=== PATIENT | female | born 1940 | race Caucasian/White ===

== ENCOUNTER 2018-03-12 10:50 | Inpatient (IN) ==
[2018-03-12 12:55] LABS: Baso % (Auto) 0.5 % (0.0-2.0); Eos % (Auto) 0.3 % (0.0-4.0); Hematocrit 39.9 % (35.0-46.0); Hemoglobin 13.6 gm/dL (11.6-15.3); Lymph # (Auto) 0.4 th/mm3 (1.0-4.8); Lymph % (Auto) 4.4 % (9.0-44.0); Mean Corpuscular Volume 88.3 fL (80.0-100.0); Mean Platelet Volume 6.9 fL (7.0-11.0); Mono # (Auto) 0.9 th/mm3 (0.0-0.9); Mono % (Auto) 11.1 % (0.0-8.0); Neut # (Auto) 6.8 th/mm3 (1.8-7.7); Neut % (Auto) 83.7 % (16.0-70.0); Platelet Count 286 th/mm3 (150-450); Red Blood Count 4.52 mil/mm3 (4.00-5.30); Red Cell Distribution Width 13.2 % (11.6-17.2); White Blood Count 8.2 th/mm3 (4.0-11.0)
[2018-03-12 13:15] LABS: Alanine Aminotransferase 9 U/L (10-53); Albumin 3.6 g/dL (3.4-5.0); Anion Gap 8 meq/L (5-15); Aspartate Aminotransferase 21 U/L (15-37); Blood Urea Nitrogen 20 mg/dL (7-18); Calcium 8.6 mg/dL (8.5-10.1); Carbon Dioxide 31.5 meq/L (21.0-32.0); Chloride 97 meq/L (98-107); Glomerular Filtration Rate Greater Than 89 mL/min (>89); Glucose,Random 106 mg/dL (74-106); Lipase 122 U/L (73-393); Potassium 3.6 meq/L (3.5-5.1); Sodium 136 meq/L (136-145)
[2018-03-12 13:18] LABS: Alkaline Phosphatase 102 U/L (45-117); Total Protein 6.9 g/dL (6.4-8.2)
[2018-03-12 13:28] LABS: Bilirubin,Urine Negative (Negative); Clarity,Urine Clear (Clear); Color,Urine Yellow (Yellw/Straw); Glucose,Urine (UA) Negative (Negative); Leukocyte Esterase,Urine Negative (Negative); Mucus,Urine Few /lpf (Occasional); Nitrite,Urine Negative (Negative); Squamous Epithelial Cell,Urine 1 /hpf (0-5)
--- NOTE | 2018-03-12 13:56 | XR ---
EXAM DATE: 03/12/2018 12:31 PM EDT AGE/SEX: 77 years / Female INDICATIONS: Post fall two weeks ago. CLINICAL DATA: This is the patient's initial encounter. Patient reports that signs and symptoms have been present for 2 weeks and indicates a pain score of 5/10. MEDICAL/SURGICAL HISTORY: None. None. COMPARISON: No prior exams available for comparison. FINDINGS: The femoral head is well situated within the acetabular fossa. The alignment is anatomic. No acute fr acture of the hip is identified. The oblique images do demonstrate an area of increased density in the subcutaneous tissues measuring approximately 10.0 x 4.1 cm. It is possible this represents hematoma however I cannot exclude an unde rlying soft tissue mass. Ultrasound imaging for further assessment would be warranted. CONCLUSION: No acute bony abnormality is identified. Soft tissue abnormality in the subcutaneous tissues of the right groin. Please see above. Electronically signed by: Delroy Davis MD 03/12/2018 1:55 PM EDT
--- NOTE | 2018-03-12 14:13 | CT ---
EXAM DATE: 03/12/2018 1:25 PM EDT AGE/SEX: 77 years / Female INDICATIONS: Patient complains of bilateral flank pain for 2 weeks CLINICAL DATA: This is the patient's initial encounter. Patient reports that signs and symptoms have been present for 2 weeks and indicates a pain score of 10/10. MEDICAL/SURGICAL HISTORY: Carcinoma, breast. None. ORAL CONTRAST: No oral contrast ingested. RADIATION DOSE: 4.91 CTDI (mGy) COMPARISON: POI, CT ABDOMEN AND PELVIS W/ CONTRAST, 11/13/2016. . TECHNIQUE: Multiple contiguous axial images were obtained through the abdomen and pelvis following b olus infusion of 75 ml Omnipaque 350 (iohexol) nonionic water-soluble contrast as a single exam dos e. No oral contrast ingested. Using automated exposure control and adjustment of the mA and/or kV ac cording to patient size, radiation dose was kept as low as reasonably achievable to obtain optimal di agnostic quality images. DICOM format image data is available electronically for review and comparis on. FINDINGS: Imaging through the lung bases demonstrate a small to moderate-sized right pneumothorax. The appearance of the liver, spleen, pancreas and adrenal glands is within normal limits. The kidneys are unremarkable in appearance bilaterally. The abdominal aorta is normal in caliber. There is no retroperitoneal adenopathy. No free air free fl uid is seen within the abdomen. There is no free fluid within the pelvis. No iliac or inguinal adenopathy is present. The examination does demonstrate a 4.1 x 3.5 cm well-circumscribed cystic mass involving the right adnexa. The visualized bony structures demonstrate a severe compression fracture of L1. There is vertebral pl saad with moderate bony retropulsion. The remainder the visualized osseous structures are grossly inta ct. CONCLUSION: 1. Small to moderate-sized pneumothorax on the right. 2. 4.1 x 3.5 cm well-circumscribed cystic mass in the right adnexa. 3. Severe compression fracture of L1. Compression fracture at L1 is new since previous of 11/13/2016. Electronically signed by: Delroy Davis MD 03/12/2018 2:11 PM EDT
--- NOTE | 2018-03-12 14:15 | XR ---
EXAM DATE: 03/12/2018 12:33 PM EDT AGE/SEX: 77 years / Female INDICATIONS: Post fall two weeks ago. Bilateral rib pain. CLINICAL DATA: This is the patient's initial encounter. Patient reports that signs and symptoms have been present for 2 weeks and indicates a pain score of 7/10. MEDICAL/SURGICAL HISTORY: None. None. COMPARISON: No prior exams available for comparison. FINDINGS: The examination demonstrates a small to moderate-sized pneumothorax on the right. There are fractures involving the right fourth, fifth and sixth ribs. The remainder the visualized bony structures are g rossly intact. There are granulomatous calcifications in the lung bases bilaterally. CONCLUSION: 1. The examination demonstrates a moderate-sized pneumothorax on the right with fractures involving the right fourth, fifth and sixth ribs. 2. Incidental note made of small areas of granulomatous calcification in the lung bases bilaterally. Electronically signed by: Delroy Davis MD 03/12/2018 2:14 PM EDT
[2018-03-12] MEDS ORDERED: Acetaminophen 325 MG Tablet PO PRN (16:53)
--- NOTE | 2018-03-12 17:06 | ED ---
HPI General Chief complaint: Abdominal Pain Stated complaint: Medical Time Seen by Provider: 03/12/18 11:04 History of Present Illness HPI narrative: Patient is a 77-year-old female presents emergency department for evaluation of lower abdominal and suprapubic pain, bilateral flank pain, low back pain after a fall 10 days ago. Patient has a history of Parkinson's disease and frequent falls. No blood in the urine, no head injury no neck injury, not on any blood thinners. States symptoms been gradually worsening, location as above, context above, duration as above. Related Data Home Medications Medication Instructions Recorded Confirmed calcium phosphate-vitamin D3 1,260 mg PO DAILY 03/12/18 03/12/18 [Citracal + D3 (calcium phos)] oxybutynin chloride 5 mg PO BID 03/12/18 03/12/18 trazodone 50 mg PO DAILY 03/12/18 03/12/18 Allergies Allergy/AdvReac Type Severity Reaction Status Date / Time latex Allergy Severe RASH Verified 03/12/18 11:12 doxycycline AdvReac Severe "TURNS ME Verified 03/12/18 11:12 PURPLE" minocycline AdvReac Severe "TURNS ME Verified 03/12/18 11:12 PURPLE" tigecycline AdvReac Severe "TURNS ME Verified 03/12/18 11:12 PURPLE" Review of Systems ROS: all other systems reviewed are negative PMFSH Medical History Medical History Breast cancer (Acute) Osteoporosis (Acute) Parkinson disease (Acute) Social History Social History Substance History: No History of Abuse Second Hand Smoke Exposure: No Smoking Status: Never smoker How Often Do You Have a Drink Containing Alcohol: Monthly or less Recent Travel in [facility] within the Last 8 Weeks: No Recent Out of Country Travel within the Last 8 Weeks: No Immunization History Tetanus Immunization: <5 Years Hx Influenza Vaccine This Season: No Exam Narrative Exam Narrative: GENERAL: Well-developed well-nourished no obvious distress. SKIN: Focused skin assessment warm/dry. HEAD: Atraumatic. Normocephalic. EYES: Pupils equal and round. No scleral icterus. No injection or drainage. ENT: No nasal bleeding or discharge. Mucous membranes pink and moist. NECK: Trachea midline. No JVD. CARDIOVASCULAR: Regular rate and rhythm. No murmur appreciated. RESPIRATORY: No accessory muscle use. Clear to auscultation. Breath sounds equal bilaterally. GASTROINTESTINAL: Abdomen soft, non-tender, nondistended. Hepatic and splenic margins not palpable. MUSCULOSKELETAL: No obvious deformities. No clubbing. No cyanosis. No edema. NEUROLOGICAL: Awake and alert. No obvious cranial nerve deficits. Motor grossly within normal limits. Normal speech. PSYCHIATRIC: Appropriate mood and affect; insight and judgment normal. Course Initial Documented Vital Signs Temperature 98.0 F 03/12/18 10:58 Pulse Rate 106 H 03/12/18 10:58 Respiratory Rate 18 03/12/18 10:58 Blood Pressure 159/80 H 03/12/18 10:58 Pulse Oximetry 97 03/12/18 10:58 Last Documented Vital Signs Temperature 98.0 F 03/12/18 10:58 Pulse Rate 106 H 03/12/18 10:58 Respiratory Rate 18 03/12/18 10:58 Blood Pressure 159/80 H 03/12/18 10:58 Pulse Oximetry 97 03/12/18 10:58 Medical Decision Making MDM Narrative Medical decision making narrative: Patient 77-year-old female presents to the emergency department 10 days after a fall from standing. She complained of low abdominal pain and some flank pain she actually has a pretty reassuring physical exam. Imaging had obtained and showed a severe compression fracture of L1 with retropulsion of elements into the spinal canal. The patient is neurologically intact. Also had isolated rib fracture on the right side, pneumothorax as well. Patient initially consulted Dr. Leonard, given that the symptoms have been present for 10 days he would like the patient to be offered to medical admission first. Discussed with the patient's primary care provider Dr. Nick who would like to admit the patient. Dr. Leonard was seen in consult. Patient also discussed with Dr. Sanchez, he is reviewed the images and would like to take the patient to the operating room. Patient was discussed with Dr. Sanchez about the pneumothorax and we agree if planning taken the operating room may need chest tube for positive pressure ventilations. Medical Screen Exam Complete: Yes Emergency Medical Condition: Yes Lab Data Result diagrams: 03/12/18 12:14 03/12/18 12:14 Lab Results 03/12/18 03/12/18 03/12/18 Range/Units 12:14 12:14 13:01 WBC 8.2 (4.0-11.0) th/mm3 RBC 4.52 (4.00-5.30) mil/mm3 Hgb 13.6 (11.6-15.3) gm/dL Hct 39.9 (35.0-46.0) % MCV 88.3 (80.0-100.0) fL MCH 30.0 (27.0-34.0) pg MCHC 34.0 (32.0-36.0) % RDW 13.2 (11.6-17.2) % Plt Count 286 (150-450) th/mm3 MPV 6.9 L (7.0-11.0) fL Neut % (Auto) 83.7 H (16.0-70.0) % Lymph % (Auto) 4.4 L (9.0-44.0) % [place] % (Auto) 11.1 H (0.0-8.0) % Eos % (Auto) 0.3 (0.0-4.0) % Baso % (Auto) 0.5 (0.0-2.0) % Neut # (Auto) 6.8 (1.8-7.7) th/mm3 Lymph # (Auto) 0.4 L (1.0-4.8) th/mm3 [place] # (Auto) 0.9 (0.0-0.9) th/mm3 Eos # (Auto) 0.0 (0.0-0.4) th/mm3 Baso # (Auto) 0.0 (0.0-0.2) th/mm3 WBC Differential . Differential Comment Auto diff final Sodium 136 (136-145) meq/L Potassium 3.6 (3.5-5.1) meq/L Chloride 97 L (98-107) meq/L Carbon Dioxide 31.5 (21.0-32.0) meq/L Anion Gap 8 (5-15) meq/L BUN 20 H (7-18) mg/dL Creatinine 0.51 (0.50-1.00) mg/dL Estimated GFR Greater than 89 (>89) mL/min Random Glucose 106 (74-106) mg/dL Calcium 8.6 (8.5-10.1) mg/dL Total Bilirubin 0.9 (0.2-1.0) mg/dL AST 21 (15-37) U/L ALT 9 L (10-53) U/L Alkaline Phosphatase 102 (45-117) U/L Total Protein 6.9 (6.4-8.2) g/dL Albumin 3.6 (3.4-5.0) g/dL Lipase 122 (73-393) U/L Urine Color Yellow (Yellw/Straw) Urine Clarity Clear (Clear) Urine pH 6.0 (5.0-8.5) Ur Specific [place] 1.020 (1.002-1.035) Urine Protein Negative (Neg-Trace) mg/dL Urine Glucose (UA) Negative (Negative) mg/dL Urine Ketones 20 (Negative) mg/dL Urine Occult Blood Small H (Negative) Urine Nitrate Negative (Negative) Urine Bilirubin Negative (Negative) Urine Urobilinogen Less than 2 (Less than 2) mg/dL Ur Leukocyte Esterase Negative (Negative) Urine RBC 1 (0-3) /hpf Urine WBC 1 (0-5) /hpf Ur Squamous Epith Cells 1 (0-5) /hpf Urine Mucus Few H (Occasional) /lpf Micro UA Comment Culture not ind Ur Microscopic Review Not Reportable Urine Culture Comments Culture not ind Imaging Data Radiologist's impression: Abdomen/Pelvis CT 03/12/18 12:31 CONCLUSION: 1. Small to moderate-sized pneumothorax on the right. 2. 4.1 x 3.5 cm well-circumscribed cystic mass in the right adnexa. 3. Severe compression fracture of L1. Compression fracture at L1 is new since previous of 11/13/2016. Hip X-Ray 03/12/18 12:31 CONCLUSION: No acute bony abnormality is identified. Soft tissue abnormality in the subcutaneous tissues of the right groin. Please see above. Ribs X-Ray 03/12/18 12:33 CONCLUSION: 1. The examination demonstrates a moderate-sized pneumothorax on the right with fractures involving the right fourth, fifth and sixth ribs. 2. Incidental note made of small areas of granulomatous calcification in the lung bases bilaterally. Discharge Plan Discharge Disposition Patient Disposition: 30 Still Patient Discharge Condition Condition: Stable Discharge Details Diagnosis: Fracture of lumbar spine, Pneumothorax Physicians Team ED Provider: Randall Daives Primary Care Provider: Rj Nick Attending Provider: Rj Nick Other Providers: Missy Leonard ; Rajesh Sanchez Discharge Interventions Interventions: Vital Signs Last Done: 03/12/18 10:58 Status ED Status: Admitted Patient
--- NOTE | 2018-03-12 17:53 | MR ---
EXAM DATE: 03/12/2018 5:16 PM EDT AGE/SEX: 77 years / Female INDICATIONS: Fracture. CLINICAL DATA: This is the patient's initial encounter. Patient reports that signs and symptoms have been present for 4 - 6 days and indicates a pain score of 10/10. MEDICAL/SURGICAL HISTORY: Carcinoma, breast. Appendectomy. Tonsillectomy. COMPARISON: No prior exams available for comparison. TECHNIQUE: Multiplanar, multisequence MRI of the lumbar spine was performed without contrast. Patie nt was scanned in a sitting position; neutral, flexion, and extension scans were performed in the sa gittal plane. FINDINGS: There is a severe compression fracture of L1 with retropulsion compromising the spinal canal and resu lting in a focal moderate central canal and moderate to severe lateral recess stenosis. Mild bilatera l foraminal encroachment. At L1-2 there is no significant stenosis of the disc interspace. At L2-3 there is a mild disc bulge or protrusion with mild lateral recess stenosis. At L3-4 there is a broad-based posterior disc protrusion and facet arthropathy with a moderate centra l canal lateral recess stenosis and mild right foraminal stenosis. At L4-5 there is a grade 1 anterolisthesis and broad-based disc protrusion with facet arthropathy res ulting in a focal moderate to severe canal and lateral recess stenosis and mild bilateral foraminal s tenosis. At L5-S1 there is a disc bulge and facet arthropathy without significant canal or foraminal stenosis. CONCLUSION: 1. At L1 there is a severe compression fracture with retropulsion resulting in a focal moderate to s evere canal and lateral recess stenosis. 2. At L3-4 there is a moderate central canal and lateral recess stenosis from disc protrusion and fa cet arthropathy. 3. At L4-5 there is a severe focal severe canal stenosis from grade 1 anterolisthesis listhesis, dis c protrusion and facet arthropathy. Electronically signed by: Hilton Bergeron MD 03/12/2018 5:52 PM EDT
--- NOTE | 2018-03-12 17:57 | CT ---
EXAM DATE: 03/12/2018 12:00 AM EDT AGE/SEX: 77 years / Female INDICATIONS: Fall eight days ago. Lumbar fracture. CLINICAL DATA: This is the patient's initial encounter. Patient reports that signs and symptoms have been present for 1 day and indicates a pain score of 7/10. MEDICAL/SURGICAL HISTORY: Carcinoma, breast. Parkinson's disease. None. RADIATION DOSE: . CTDI (mGy) ; Reconstructed from previous dataset, no dose COMPARISON: No prior exams available for comparison. TECHNIQUE: Contiguous axial images were acquired with a multirow detector CT scanner after intraveno us administration of 100 ml Omnipaque 350 (iohexol) nonionic water-soluble contrast as a cumulative dose for multiple exams. Multiplanar reconstructions in the sagittal and coronal plane were also per formed. Using automated exposure control and adjustment of the mA and/or kV according to patient size , radiation dose was kept as low as reasonably achievable to obtain optimal diagnostic quality images . DICOM format image data is available electronically for review and comparison. FINDINGS: At L1 there is a severe compression fracture with retropulsion and moderate to severe central canal l ateral recess stenosis. At L2-3 there is a disc bulge and facet arthropathy with mild lateral recess stenosis. At L3-4 there is a broad-based disc protrusion with moderate central canal and lateral recess stenosi s. Minimal anterolisthesis at this level. At L4-5 there is a severe central canal lateral recess stenosis from grade 1 anterolisthesis, disc pr otrusion and facet arthropathy. At L5-S1 there is a mild disc bulge without significant canal stenosis. Mild bilateral foraminal encr oachment. CONCLUSION: At L1 there is a severe compression fracture with retropulsion and moderate to severe central canal l ateral recess stenosis. At L4-5 there is a severe central canal stenosis from grade 1 anterolisthesis, disc protrusion and fa cet arthropathy. At L3-4 there is a moderate central canal lateral recess stenosis from disc protrusion, minimal anter olisthesis and facet arthropathy. Electronically signed by: Hilton Bergeron MD 03/12/2018 5:56 PM EDT
--- NOTE | 2018-03-12 18:42 | P.CONNS ---
<Brenda Stewart - Last Filed: 03/12/18 20:56> History of Present Illness Primary Care Provider: Rj Nick MD History of Present Illness: Ms. Alcantar is a 77 year old female presents today with complaints of back pain. She reportedly had several ground level falls approximately 10 days ago. She has a history of Parkinson's Disease. She is complaining of pain in her upper lumbar region midline. She denies radiating pain, numbness, tingling, weakness , bowel or bladder incontinence. She has been ambulating. She was found to have a severe fracture of L1 with retropulsion into the spinal canal on her CT Abdomen/Pelvis. Neurosurgical evaluation was requested. Review of Systems Constitutional: Denies body ache(s), Denies chills, Denies excessive sweating, Denies fever(s) Eyes: Denies change in vision Ears, Nose, Mouth, and Throat: Denies dizziness Cardiovascular: Denies chest pain, Denies chest pain at rest, Denies chest pain with activity Respiratory: Denies chest congestion, Denies cough, Denies coughing up blood, Denies shortness of breath Gastrointestinal: Denies abdominal pain, Denies bright, red blood in stools, Denies incontinent of stools Genitourinary: Denies urinary incontinence Musculoskeletal: Reports abnormal walking, Reports back pain, Denies neck pain, Denies numbness, Denies radiating pain into limb Neurologic: Reports frequent falls, Denies abnormal speech, Denies confusion, Denies dizziness, Denies fainting, Denies headache(s), Denies localized weakness , Denies seizure-like activity, Denies tingling/numbness/burning sensations, Denies weakness PMF - Medical History Medical History: Medical History (Last Updated 03/12/18 @ 11:14 by Renate Llamas) Breast cancer Osteoporosis Parkinson disease Medications and Allergies Allergies Allergy/AdvReac Type Severity Reaction Status Date / Time latex Allergy Severe RASH Verified 03/12/18 11:12 doxycycline AdvReac Severe "TURNS ME Verified 03/12/18 11:12 PURPLE" minocycline AdvReac Severe "TURNS ME Verified 03/12/18 11:12 PURPLE" tigecycline AdvReac Severe "TURNS ME Verified 03/12/18 11:12 PURPLE" Home Medications Medication Instructions Recorded Confirmed Type calcium phosphate-vitamin D3 1,260 mg PO DAILY 03/12/18 03/12/18 History [Citracal + D3 (calcium phos)] carbidopa-levodopa 2 tab PO AC BREAKFAST 03/12/18 03/12/18 History oxybutynin chloride 5 mg PO BID 03/12/18 03/12/18 History trazodone 50 mg PO HS 03/12/18 03/12/18 History Active Medications: Active Medications Acetaminophen (Tylenol) 650 mg PO Q4H PRN PRN Reason: Temp > 100.4 Al Hydroxide/Mg Hydroxide (Milk Of Jaja Hui) 30 ml PO Q12H PRN PRN Reason: Mild Constipation Calcium/Vitamin D (Oscal With D 250/125 Mg) 2 tab PO DAILY [facility] Chlorhexidine Gluconate (Chlorhexidine 2% Cloth) 3 pack TOPICAL DAILY@0400 [facility] Stop: 03/18/18 03:59 Chlorhexidine Gluconate (Chlorhexidine 2% Cloth) 3 pack TOPICAL DAILY@0400 PRN PRN Reason: Extra cloth needed Stop: 03/18/18 03:59 Heparin Sodium (Porcine) (Heparin Inj) 5,000 units SQ Q12H [facility] Lactated Ringer's (Lr 1000 Ml Inj) 1,000 mls @ 100 mls/hr IV.CONT .Q10H [facility] Acetaminophen (Ofirmev Inj) 1,000 mg in 100 mls @ 400 mls/hr IV.SIG Q6H PRN PRN Reason: PAIN SCALE 1 TO 10 Morphine Sulfate (Morphine Inj) 2 mg IV.PUSH Q3H PRN PRN Reason: BREAKTHROUGH PAIN Ondansetron HCl (Zofran Inj) 4 mg IV.PUSH Q6H PRN PRN Reason: NAUSEA OR VOMITING Oxybutynin Chloride (Ditropan) 5 mg PO BID [facility] Senna/Docusate Sodium (Steffi-Colace) 1 tab PO BID [facility] Sodium Chloride (Ns Flush) 2 ml IV.FLUSH PRN PRN PRN Reason: FLUSH AFTER USING IV ACCESS Sodium Chloride (Ns Flush) 2 ml IV.FLUSH UNSCH PRN PRN Reason: FLUSH AFTER USING IV ACCESS Trazodone HCl (Desyrel) 50 mg PO [facility] Exam Vital signs: Vital Signs 03/12/18 10:58 03/12/18 17:10 03/12/18 20:00 Temperature 98.0 F 98.1 F Pulse Rate 106 H 76 93 H Respiratory Rate 18 22 16 Blood Pressure 159/80 H 169/74 H 145/66 H Pulse Oximetry 97 98 99 Intake & Output 03/12/18 03/12/18 03/13/18 06:59 18:59 06:59 Weight 54.431 kg Results - Laboratory Findings CBC and BMP: 03/12/18 12:14 03/12/18 12:14 Abnormal lab findings: Abnormal Labs 03/12/18 03/12/18 03/12/18 12:14 12:14 13:01 MPV 6.9 L Neut % (Auto) 83.7 H Lymph % (Auto) 4.4 L [place] % (Auto) 11.1 H Lymph # (Auto) 0.4 L Chloride 97 L BUN 20 H ALT 9 L Urine Occult Blood Small H Urine Mucus Few H <DanielRajesh - Last Filed: 03/13/18 14:19> History of Present Illness Service: neurosurgery Primary Care Provider: Rj Nick MD Chief Complaint: back pain Review of Systems Constitutional: Denies anorexia, Denies body ache(s), Denies chills, Denies daytime sleepiness, Denies excessive sweating, Denies fatigue, Denies fever(s), Denies headache(s), Denies increased appetite, Denies lack of energy, Denies malaise, Denies night sweats, Denies weakness, Denies weight gain, Denies weight loss, Denies other Eyes: Denies blind spots, Denies blurry vision, Denies bulging eyes, Denies change in vision, Denies double vision, Denies discharge, Denies dry eyes, Denies floaters, Denies irritation, Denies itchy eyes, Denies loss of vision, Denies pain, Denies requires corrective lenses, Denies sensitivity to light, Denies other Ears, Nose, Mouth, and Throat: Reports abnormal hearing, Denies bleeding gums, Denies bad breath, Denies change in voice, Denies dental pain, Denies difficulty swallowing, Denies dizziness, Denies dry mouth, Denies ear discharge , Denies ear pain, Denies facial pain, Denies headache(s), Denies hearing loss, Denies hoarseness, Denies lip swelling, Denies nosebleed, Denies mouth lesions, Denies mouth pain, Denies nasal congestion, Denies nasal discharge, Denies nasal obstruction, Denies nasal trauma, Denies neck lump, Denies neck pain, Denies nose pain, Denies pain with swallowing, Denies poor balance, Denies post nasal drip, Denies ringing in the ears, Denies sinus pain, Denies sinus pressure , Denies sore throat, Denies throat swelling, Denies tongue swelling, Denies other Cardiovascular: Denies chest pain, Denies chest pain at rest, Denies chest pain with activity, Denies excessive sweating, Denies fainting, Denies fast heart rate, Denies foot swelling, Denies generalized swelling, Denies irregular heart rhythm, Denies leg pain with activity, Denies leg sores, Denies leg swelling, Denies lightheadedness, Denies radiating jaw, neck or arm pain, Denies rapid, pounding, or irregular heartbeat, Denies shortness of breath, Denies shortness of breath with activity, Denies shortness of breath when lying down, Denies shortness of breath causing sudden awakening, Denies slow heart rate, Denies other Gastrointestinal: Denies abdominal pain, Denies belching, Denies black, tarry stools, Denies bloating, Denies bright, red blood in stools, Denies change in bowel habits, Denies constant urge to pass stool, Denies change in stools, Denies coffee ground vomit, Denies constipation, Denies cramping, Denies difficulty swallowing, Denies excessive passing of gas, Denies feeling full early, Denies heartburn, Denies incontinent of stools, Denies loose stools, Denies nausea, Denies pain with swallowing, Denies vomiting, Denies vomiting blood, Denies other Genitourinary: Denies abnormal periods, Denies abnormal vaginal bleeding, Denies absent period, Denies bleeding between periods, Denies blood in urine, Denies difficulty starting urination, Denies difficulty urinating, Denies dribbling after urination, Denies frequent nighttime urination, Denies genital itching, Denies genital lesions, Denies heavy periods, Denies hot flashes, Denies light periods, Denies nipple discharge, Denies painful intercourse, Denies painful periods, Denies painful urination, Denies pelvic pain, Denies prolapse symptoms, Denies sexual problems, Denies side pain, Denies urinary incontinence, Denies urinary urgency, Denies vaginal discharge, Denies vaginal dryness, Denies vaginal odor, Denies vaginal itching, Denies other Musculoskeletal: Reports joint swelling, Reports limited joint movement, Reports muscle cramps, Reports muscle weakness Skin/Breast: Denies acne, Denies bleeding lesions, Denies boil, Denies breast swelling, Denies breast skin changes, Denies breast pain, Denies breast lump, Denies change in breast shape, Denies change in hair, Denies change in skin color, Denies changing lesions, Denies dry skin, Denies excessive hair growth, Denies hair loss, Denies itching, Denies lesions, Denies nail changes, Denies new lesions, Denies nipple discharge, Denies non-healing lesions, Denies redness , Denies sensitivity to light, Denies rash, Denies skin pain, Denies skin ulcer , Denies sores, Denies stretch ramirez, Denies unusual bruising, Denies wounds, Denies yellowing of the skin, Denies other Neurologic: Denies abnormal hearing, Denies abnormal movements, Denies abnormal speech, Denies abnormal walking, Denies behavioral changes, Denies burning sensations, Denies confusion, Denies dizziness, Denies fainting, Denies frequent falls, Denies headache(s), Denies lack of coordination, Denies localized weakness, Denies loss of vision, Denies memory loss, Denies numbness, Denies other visual disturbances, Denies radiating pain, Denies restless legs, Denies convulsions, Denies seizure-like activity, Denies sensory deficit, Denies tingling, Denies tingling/numbness/burning sensations, Denies tremor(s), Denies unsteadiness, Denies weakness, Denies other Endocrine: Denies cold intolerance, Denies excessive sweating, Denies flushing, Denies heat intolerance, Denies increased hunger, Denies increased thirst, Denies increased urination, Denies rapid, pounding, or irregular heartbeat, Denies other Hematologic/Lymphatic: Denies easy bleeding, Denies easy bruising, Denies enlarged lymph nodes, Denies other PMFSH - History History Provided By: Patient - Medical History Medical History: Medical History (Last Reviewed 03/13/18 @ 14:17 by Rajesh Sanchez MD) Breast cancer Osteoporosis Parkinson disease - Family History Family History: Family History (Last Updated 03/13/18 @ 14:18 by Rajesh Sanchez MD) Other No pertinent family history - Tobacco History Second Hand Smoke Exposure: No Smoking Status: Never smoker - Alcohol History How Often Do You Have a Drink Containing Alcohol: Monthly or less - Substance Use History Substance History: No History of Abuse - Travel History Recent Travel in the [place] Within the Last 8 Weeks: No Recent Travel Out of the Country Within the Last 8 Weeks: No - Immunization History Tetanus Immunization: <5 Years Hx Influenza Vaccine This Season: No Medications and Allergies Active Medications: Active Medications Acetaminophen (Tylenol) 650 mg PO Q4H PRN PRN Reason: Temp > 100.4 Al Hydroxide/Mg Hydroxide (Milk Of Jaja Liramírez) 30 ml PO Q12H PRN PRN Reason: Mild Constipation Heparin Sodium (Porcine) (Heparin Inj) 5,000 units SQ Q12H [facility] Lactated Ringer's (Lr 1000 Ml Inj) 1,000 mls @ 100 mls/hr IV.CONT .Q10H [facility] Non-Formulary Medication (Calcium Phosphate-Vitamin D3 [Citracal + D3 (Calcium Phos)]) 1,260 mg PO DAILY [facility] Ondansetron HCl (Zofran Inj) 4 mg IV.PUSH Q6H PRN PRN Reason: NAUSEA OR VOMITING Oxybutynin Chloride (Ditropan) 5 mg PO BID [facility] Senna/Docusate Sodium (Steffi-Colace) 1 tab PO BID [facility] Sodium Chloride (Ns Flush) 2 ml IV.FLUSH PRN PRN PRN Reason: FLUSH AFTER USING IV ACCESS Trazodone HCl (Desyrel) 50 mg PO DAILY [facility] Exam Vital signs: Vital Signs 03/12/18 10:58 03/12/18 17:10 Temperature 98.0 F Pulse Rate 106 H 76 Respiratory Rate 18 22 Blood Pressure 159/80 H 169/74 H Pulse Oximetry 97 98 Intake & Output 03/11/18 03/12/18 03/12/18 18:59 06:59 18:59 Weight 54.431 kg Narrative: The patient is alert, awake. Comfortable, in no acute distress. Speech is fluent. Cranial nerve examination: pupils to be equal, round and reactive to light. Extra-ocular movements are intact. Facial motor and sensory function are normal and symmetrical. Gross hearing appears intact. Sternocleidomastoid and trapezius muscles are symmetrical. Other cranial nerves are intact. Neck is soft and supple with a good range of motion without pain. Muscle strength is normal in all muscle groups of both upper and lower extremities. Sensory examination is intact to light touch and pin prick in both the upper and lower extremities. Deep tendon reflexes are symmetrical in both upper and lower extremities. There is a bilateral plantar flexion response. Cerebellar examination is unremarkable, without deficits. Lungs are clear Heart regular rhythm is regular rate Skin warm and dry Results - Laboratory Findings CBC and BMP: 03/13/18 03:26 03/13/18 03:26 Abnormal lab findings: Abnormal Labs 03/12/18 03/12/18 03/12/18 12:14 12:14 13:01 MPV 6.9 L Neut % (Auto) 83.7 H Lymph % (Auto) 4.4 L [place] % (Auto) 11.1 H Lymph # (Auto) 0.4 L Chloride 97 L BUN 20 H ALT 9 L Urine Occult Blood Small H Urine Mucus Few H Assessment and Plan - Plan Neuro: neuro checks in a serial fashion. She has a highly unstable fracture at L1. I recommend an MRI of the lumbar spine. She will need an open reduction and internal fixation of the fracture. Sunshine discussed the [id number] details of the surgical procedure, its indications, alternatives, risks, and potential complications. Risks and potential complications include, but are not limited to, infection, blood loss, CSF leak, partial or complete loss of sight in one or both eyes, paresis, paralysis, permanent pain or difficulty swallowing, loss of bowel or bladder function, complications from anesthesia, blood clot, stroke , myocardial infarction, or even . The possibility of nonoperative treatment has been offered. Pneumothorax. Consult trauma surgeon. It could enlarge under general anesthesia and potentiallty require a chest tube Pulmonary: aggressive pulmonary toilette, nasotracheal suction, and breathing treatments with nebulizers. Daily PT and OT Renal: Continue to monitor closely urine output, BUN and creatinine Endocrine: Continue to Monitor serial Acu checks and SSI as needed in detail ID continue to monitor for signs of infection Continue Protonix for stress ulcer prophylaxis Continue Jaswinder hose and SCD's for DVT prophylaxis Further recommendations will be provided depending on the patient's clinical evaluation and follow up studies.
[2018-03-12] MEDS ORDERED: Heparin - SQ 10,000 UNITS/ML Vial SQ SCH (21:00)
--- NOTE | 2018-03-12 21:52 | ECG ---
Date Performed: 03/12/2018 Time Performed: 11:20:09 PTAGE: 77 years EKG: Sinus rhythm WITH SHORT OK INTERVAL WITH OCCASIONAL SUPRAVENTRICULAR PREMATURE COMPLEXES POSSIBLE LEFT ATRIAL ENL ARGEMENT BORDERLINE ECG NO PREVIOUS TRACING DOCTOR: Marco Pierson Interpretating Date/Time 03/12/2018 21:51:08
--- NOTE | 2018-03-12 22:06 | P.HPCC ---
History of Present Illness Primary Care Physician: Rj Nick MD Chief Complaint: back pain History of Present Illness: 77 y.o female-fell 10 days ago in [place]-came back to [place]-has been c/o back pain- right thoracic pain.Today she was seen in the ER,the work up shows right 4-5-6 rib fx,moderate PTX and a severe L1 fx with retropulsion.Patient is neuro intact ,GCS 15. Inpatient Certification: I certify that the inpatient services were ordered in accordance with Medicare regulations governing the order. This includes certification that hospital inpatient services are reasonable and necessary and in the case of services not specified as inpatient-only under 42 CFR 419.22(n), that they are appropriately provided as inpatient services in accordance to with the 2-midnight benchmark under 43 CFR 412.3(e) Estimated Total Length of Stay (Days): 3 Plans for Post Hospital Care: Home health Review of Systems All other systems reviewed negative except as stated in HPI PMFSH - History History Provided By: Patient - Medical History Medical History: Medical History (Last Updated 03/12/18 @ 11:14 by Renate Llamas) Breast cancer Osteoporosis Parkinson disease - Tobacco History Second Hand Smoke Exposure: No Smoking Status: Never smoker - Alcohol History How Often Do You Have a Drink Containing Alcohol: Monthly or less - Substance Use History Substance History: No History of Abuse - Travel History Recent Travel in the [place] Within the Last 8 Weeks: No Recent Travel Out of the Country Within the Last 8 Weeks: No - Immunization History Tetanus Immunization: <5 Years Hx Influenza Vaccine This Season: No Medications and Allergies Active Medications: Active Medications Acetaminophen (Tylenol) 650 mg PO Q4H PRN PRN Reason: Temp > 100.4 Al Hydroxide/Mg Hydroxide (Milk Of Jaja Hui) 30 ml PO Q12H PRN PRN Reason: Mild Constipation Calcium/Vitamin D (Oscal With D 250/125 Mg) 2 tab PO DAILY [facility] Chlorhexidine Gluconate (Chlorhexidine 2% Cloth) 3 pack TOPICAL DAILY@0400 [facility] Stop: 03/18/18 03:59 Chlorhexidine Gluconate (Chlorhexidine 2% Cloth) 3 pack TOPICAL DAILY@0400 PRN PRN Reason: Extra cloth needed Stop: 03/18/18 03:59 Heparin Sodium (Porcine) (Heparin Inj) 5,000 units SQ Q12H [facility] Lactated Ringer's (Lr 1000 Ml Inj) 1,000 mls @ 100 mls/hr IV.CONT .Q10H [facility] Acetaminophen (Ofirmev Inj) 1,000 mg in 100 mls @ 400 mls/hr IV.SIG Q6H PRN PRN Reason: PAIN SCALE 1 TO 10 Lactated Ringer's (Lr 1000 Ml Inj) 1,000 mls @ 84 mls/hr IV.CONT .[id number] [facility] Morphine Sulfate (Morphine Inj) 2 mg IV.PUSH Q3H PRN PRN Reason: BREAKTHROUGH PAIN Ondansetron HCl (Zofran Inj) 4 mg IV.PUSH Q6H PRN PRN Reason: NAUSEA OR VOMITING Oxybutynin Chloride (Ditropan) 5 mg PO BID [facility] Senna/Docusate Sodium (Steffi-Colace) 1 tab PO BID [facility] Sodium Chloride (Ns Flush) 2 ml IV.FLUSH UNSCH PRN PRN Reason: FLUSH AFTER USING IV ACCESS Trazodone HCl (Desyrel) 50 mg PO HS [facility] Allergies Allergy/AdvReac Type Severity Reaction Status Date / Time latex Allergy Severe RASH Verified 03/12/18 11:12 doxycycline AdvReac Severe "TURNS ME Verified 03/12/18 11:12 PURPLE" minocycline AdvReac Severe "TURNS ME Verified 03/12/18 11:12 PURPLE" tigecycline AdvReac Severe "TURNS ME Verified 03/12/18 11:12 PURPLE" Home Medications Medication Instructions Recorded Confirmed Type calcium phosphate-vitamin D3 1,260 mg PO DAILY 03/12/18 03/12/18 History [Citracal + D3 (calcium phos)] carbidopa-levodopa 2 tab PO AC BREAKFAST 03/12/18 03/12/18 History oxybutynin chloride 5 mg PO BID 03/12/18 03/12/18 History trazodone 50 mg PO HS 03/12/18 03/12/18 History Results - Labs CBC & Chem 7: 03/12/18 12:14 03/12/18 12:14 Labs: Short CBC 03/12/18 Range/Units 12:14 WBC 8.2 (4.0-11.0) th/mm3 Hgb 13.6 (11.6-15.3) gm/dL Hct 39.9 (35.0-46.0) % Plt Count 286 (150-450) th/mm3 BMP 03/12/18 12:14 Sodium 136 Potassium 3.6 Chloride 97 L Carbon Dioxide 31.5 BUN 20 H Creatinine 0.51 Calcium 8.6 Liver Function 03/12/18 Range/Units 12:14 Total Bilirubin 0.9 (0.2-1.0) mg/dL AST 21 (15-37) U/L ALT 9 L (10-53) U/L Alkaline Phosphatase 102 (45-117) U/L Albumin 3.6 (3.4-5.0) g/dL Urine 03/12/18 Range/Units 13:01 Urine Color Yellow (Yellw/Straw) Urine Clarity Clear (Clear) Urine pH 6.0 (5.0-8.5) Ur Specific [place] 1.020 (1.002-1.035) Urine Protein Negative (Neg-Trace) mg/dL Urine Glucose (UA) Negative (Negative) mg/dL - Imaging Impressions Lumbar Spine CT 03/12/18 00:00 CONCLUSION: At L1 there is a severe compression fracture with retropulsion and moderate to severe central canal lateral recess stenosis. At L4-5 there is a severe central canal stenosis from grade 1 anterolisthesis, disc protrusion and facet arthropathy. At L3-4 there is a moderate central canal lateral recess stenosis from disc protrusion, minimal anterolisthesis and facet arthropathy. Lumbar Spine MRI 03/12/18 00:00 CONCLUSION: 1. At L1 there is a severe compression fracture with retropulsion resulting in a focal moderate to severe canal and lateral recess stenosis. 2. At L3-4 there is a moderate central canal and lateral recess stenosis from disc protrusion and facet arthropathy. 3. At L4-5 there is a severe focal severe canal stenosis from grade 1 anterolisthesis listhesis, disc protrusion and facet arthropathy. Abdomen/Pelvis CT 03/12/18 12:31 CONCLUSION: 1. Small to moderate-sized pneumothorax on the right. 2. 4.1 x 3.5 cm well-circumscribed cystic mass in the right adnexa. 3. Severe compression fracture of L1. Compression fracture at L1 is new since previous of 11/13/2016. Hip X-Ray 03/12/18 12:31 CONCLUSION: No acute bony abnormality is identified. Soft tissue abnormality in the subcutaneous tissues of the right groin. Please see above. Ribs X-Ray 03/12/18 12:33 CONCLUSION: 1. The examination demonstrates a moderate-sized pneumothorax on the right with fractures involving the right fourth, fifth and sixth ribs. 2. Incidental note made of small areas of granulomatous calcification in the lung bases bilaterally. Exam Vital signs: Vital Signs 03/12/18 10:58 03/12/18 17:10 03/12/18 20:00 Temperature 98.0 F 98.1 F Pulse Rate 106 H 76 93 H Respiratory Rate 18 22 16 Blood Pressure 159/80 H 169/74 H 145/66 H Pulse Oximetry 97 98 99 Intake & Output 03/12/18 03/12/18 03/13/18 06:59 18:59 06:59 Weight 54.431 kg - Constitutional no acute distress - Routine HEENT Exam Head: Present: normocephalic, atraumatic Eye: Present: EOMI, PERRL ENT: Present: mucous membranes moist - Routine Neck Exam Present: supple, full ROM - Routine Chest/Breast/Axilla Exam Chest wall: Present: tenderness - Routine Respiratory Exam Present: CTA bilaterally - Routine Cardiovascular Exam Present: RRR - Routine Abdominal Exam Present: soft - Routine Extremities Exam Present: full ROM, pulses intact, normal capillary refill - Routine Skin Exam Present: intact, dry - Routine Neurological Exam Present: alert, oriented X3, moving all extremities, normal tone Caprini VTE Risk Assessment Caprini VTE Risk Assessment: Moderate/High Risk (score >= 2) VTE Pharmacological Exception Reason: High risk for bleeding (TRAUMA) Caprini Risk Assessment Model: Point Value = 1 Point Value = 2 Point Value = 3 Point Value = 5 Age 41-60 Minor surgery BMI > 25 kg/m2 Swollen legs Varicose veins or History of unexplained or recurrent spontaneous Oral contraceptives or hormone replacement Sepsis (< 1 month) Serious lung disease, including pneumonia (< 1 month) Abnormal pulmonary function Acute myocardial infarction Congestive heart failure (< 1 month) History of inflammatory bowel disease Medical patient at bed rest Age 61-74 Arthroscopic surgery Major open surgery (> 45 min) Laparoscopic surgery (> 45 min) Malignancy Confined to bed (> 72 hours) Immobilizing plaster cast Central venous access Age >= 75 History of VTE Family history of VTE Factor V Leiden Prothrombin [id number] Lupus anticoagulant Anticardiolipin antibodies Elevated serum homocysteine Heparin-induced thrombocytopenia Other congenital or acquired thrombophilia Stroke (< 1 month) Elective arthroplasty Hip, pelvis, or leg fracture Acute spinal cord injury (< 1 month) Prophylaxis Regimen: Total Risk Factor Score Risk Level Prophylaxis Regimen 0-1 Low Early ambulation 2 Moderate Order ONE of the following: *Sequential Compression Device (SCD) *Heparin 5000 units SQ BID 3-4 Higher Order ONE of the following medications: *Heparin 5000 units SQ TID *Enoxaparin/Lovenox 40 mg SQ daily (WT < 150 kg, CrCl > 30 mL/min) *Enoxaparin/Lovenox 30 mg SQ daily (WT < 150 kg, CrCl > 10-29 mL/min) *Enoxaparin/Lovenox 30 mg SQ BID (WT < 150 kg, CrCl > 30 mL/min) AND/OR *Sequential Compression Device (SCD) 5 or more Highest Order ONE of the following medications: *Heparin 5000 units SQ TID (Preferred with Epidurals) *Enoxaparin/Lovenox 40 mg SQ daily (WT < 150 kg, CrCl > 30 mL/min) *Enoxaparin/Lovenox 30 mg SQ daily (WT < 150 kg, CrCl > 10-29 mL/min) *Enoxaparin/Lovenox 30 mg SQ BID (WT < 150 kg, CrCl > 30 mL/min) AND *Sequential Compression Device (SCD) Assessment and Plan - Assessment and Plan Plan: 3 rib fx right moderate PTX L1 compression fx admit to [facility] NPO after MN pain control O2 d/w NS scheduled for OR d/w IR will undergo CT insertion with imaging
[2018-03-13] MEDS: traZODone 50 MG Tablet PO SCH ×2 (00:06→21:00)
[2018-03-13] MEDS: Senna/Docusate Sodium 8.6/50 MG Tablet PO SCH ×5 (00:07→21:01)
[2018-03-13] MEDS: Morphine Sulfate Inj 2 MG/ML Vial IV.PUSH PRN (02:03)
[2018-03-13] MEDS ORDERED: Chlorhexidine Gluconate 2% 1 Pack (2 Cloths) TOPICAL PRN (04:00)
[2018-03-13 04:27] LABS: Baso % (Auto) 0.6 % (0.0-2.0); Eos # (Auto) 0.1 th/mm3 (0.0-0.4); Eos % (Auto) 1.2 % (0.0-4.0); Hematocrit 41.4 % (35.0-46.0); Hemoglobin 14.3 gm/dL (11.6-15.3); Lymph # (Auto) 0.4 th/mm3 (1.0-4.8); Lymph % (Auto) 7.5 % (9.0-44.0); Mean Corpuscular HGB Conc 34.5 % (32.0-36.0); Mean Corpuscular Hemoglobin 30.2 pg (27.0-34.0); Mean Corpuscular Volume 87.7 fL (80.0-100.0); Mean Platelet Volume 7.1 fL (7.0-11.0); Mono # (Auto) 0.8 th/mm3 (0.0-0.9); Mono % (Auto) 14.8 % (0.0-8.0); Neut # (Auto) 4.1 th/mm3 (1.8-7.7); Neut % (Auto) 75.9 % (16.0-70.0); Platelet Count 301 th/mm3 (150-450); Red Blood Count 4.72 mil/mm3 (4.00-5.30); Red Cell Distribution Width 13.4 % (11.6-17.2); White Blood Count 5.3 th/mm3 (4.0-11.0)
[2018-03-13 04:55] LABS: Alanine Aminotransferase 19 U/L (10-53); Albumin 3.4 g/dL (3.4-5.0); Alkaline Phosphatase 106 U/L (45-117); Anion Gap 10 meq/L (5-15); Aspartate Aminotransferase 20 U/L (15-37); Blood Urea Nitrogen 13 mg/dL (7-18); Calcium 8.2 mg/dL (8.5-10.1); Carbon Dioxide 31.4 meq/L (21.0-32.0); Chloride 96 meq/L (98-107); Glomerular Filtration Rate Greater Than 89 mL/min (>89); Glucose,Random 97 mg/dL (74-106); Potassium 3.4 meq/L (3.5-5.1); Sodium 137 meq/L (136-145); Total Protein 6.5 g/dL (6.4-8.2)
[2018-03-13] MEDS: Chlorhexidine Gluconate 2% 1 Pack (2 Cloths) TOPICAL SCH (07:36)
[2018-03-13] MEDS ORDERED: Senna/Docusate Sodium 8.6/50 MG Tablet PO SCH (09:00)
[2018-03-13] MEDS ORDERED: fentaNYL Citrate Inj 100 MCG/2 ML Ampul ONE (09:13)
[2018-03-13] MEDS: Calcium/Vitamin D 250/125 MG Tablet PO SCH ×2 (09:46→10:27)
--- NOTE | 2018-03-13 09:54 | P.RAD ---
Post Procedure Progress Note - Pre Procedure Diagnosis (1) Pneumothorax - Post Procedure Diagnosis (1) Pneumothorax - Procedure Information Procedure Date: 03/13/18 Supervising Radiologist: Jared Akins MD Estimated blood loss (mL): 0 - Plan of Activity Patient to Unit: Critical Care Patient Condition: Fair See PACS Report for procedural detail/treatment. Drainage Procedure Fluoroscopy right Chest Tube Non-Tunneled Placement Luxembourgish Tube Size: 10 Drainage: Pleurovac (40 cmH2O)
--- NOTE | 2018-03-13 10:52 | XR ---
EXAM DATE: 03/13/2018 9:52 AM EDT AGE/SEX: 77 years / Female INDICATIONS: S/P chest tube placement. CLINICAL DATA: This is the patient's initial encounter. Patient reports that signs and symptoms have been present for 1 day and indicates a pain score of 0/10. MEDICAL/SURGICAL HISTORY: None. None. COMPARISON: [facility], RIBS BILATERAL MIN 4V W EXP CHEST, 03/12/2018. . FINDINGS: Portable upright expiratory view of the chest demonstrates a normal-sized cardiac silhouette. EKG roger es overlie the patient and clips overlie the right axilla. Multiple bilateral calcified nodules remai n present. There is a small bore chest tube at the apex of the right hemithorax. No definite pneumoth orax is identified. Right rib fractures remain visualized. CONCLUSION: No pneumothorax is identified with right chest tube in place. Electronically signed by: Leonel Jefferson MD 03/13/2018 10:51 AM EDT
[2018-03-13] MEDS ORDERED: Thrombin Topical Soln 5,000 UNIT Vial TOPICAL ONE (12:06)
[2018-03-13] MEDS ORDERED: Gelatin Size 100 Topical Foam ONE (12:06)
[2018-03-13] MEDS ORDERED: Heparin - SQ 10,000 UNITS/ML Vial ONE (12:06)
--- NOTE | 2018-03-13 12:27 | P.DIET ---
Nutritional Evaluation Type of nutrition evaluation: initial Nutrition screening: [facility] (Poor PO Intake) Objective - Diagnosis Compression Fx of the spine, Rib Fx - Objective Body Mass Index: 16.4 % IBW: 76 (IBW = 147.5 kg) Body Weight Used for Calculations: Actual (51.2) Energy Needs - Lower Range (kCal/kg): 30 Energy Needs - Upper Range (kCal/kg): 35 Lower Limit kCal/kg (kCals): 1,536 Upper Limit kCal/kg (kCals): 1,792 Lower Limit Protein Factor (Grams per Kg): 1.2 Upper Limit Protein Factor (Grams per Kg): 1.5 Lower Protein Needs (Protein): 61 Upper Protein Needs (Protein): 177 Dietitian Reviewed in Medical Record: Curent medications, Intake & Output, Labs , Medical history Diet Order: NPO Assessment Assessment: [facility] acknowledged. Pt is admitted to [facility] and diet remains npo. RD will monitor clinical course, diet advance and assess the need for supplements. RD will be available if nutrition support recommendations are needed. Recommendations: RD following Dietitian to Monitor: Lab values, Intake & Output, Weight change, Diet advancement, Medical course
[2018-03-13] MEDS ORDERED: Propofol Inj 500 MG/50 ML Vial ONE (12:39)
[2018-03-13] MEDS ORDERED: fentaNYL Citrate Inj 250 MCG/5 ML Ampul ONE (12:39)
[2018-03-13] MEDS ORDERED: Metoprolol Inj 5 MG/5 ML Vial IV.PUSH ONE (13:01)
[2018-03-13] MEDS ORDERED: Sodium Chlor 0.9% Inj 500 ML IV.CONT ONE (13:01)
[2018-03-13] MEDS ORDERED: Sodium Chlor 0.9% Inj 250 ML IV.CONT ONE (13:01)
[2018-03-13] MEDS ORDERED: Phenylephrine/NS 1000 MCG/10ML Syringe IV.PUSH ONE (13:01)
--- NOTE | 2018-03-13 13:05 | P.PNCC ---
Subjective Brief History: 77-year-old female fell and sustained chest and back injury about 4 5 days ago in [place]. Flu here in an airplane and then came to the emergency room. Patient was noted to have right serial rib fractures and a right pneumothorax as well as an L1 severe compression fracture with retropulsion. Patient was found to be somewhat weak however she has known Parkinson's disease and she is evaluated by neurosurgery and trauma surgery service is admitting the patient for further care 24 Hour Review/Hospital Course: 03/13/2018 Through the night patient has been stable Neurologically she is this morning intact although she is fairly weak in general but symmetric Hemodynamically intact Bilateral good breath sounds patient had right chest tube placed by interventional radiology and lungs fully expanded Abdomen soft active bowel sounds Patient is to undergo L1 posterior instrumentation and stabilization by Dr. Heller Objective Vital Signs / I&O: Vital Signs 03/12/18 17:10 03/12/18 20:00 03/13/18 00:00 Temperature 98.1 F 97.6 F Pulse Rate 76 93 H 78 Respiratory Rate 22 16 15 Blood Pressure 169/74 H 145/66 H 185/85 H Pulse Oximetry 98 99 100 03/13/18 04:00 03/13/18 08:00 03/13/18 10:00 Temperature 98.0 F 97.9 F Pulse Rate 96 H 90 82 Respiratory Rate 16 16 Blood Pressure 174/53 H 186/86 H Pulse Oximetry 100 96 03/13/18 10:10 03/13/18 11:30 Temperature 97.5 F L Pulse Rate 98 H Respiratory Rate 14 16 Blood Pressure 180/84 H Pulse Oximetry 96 Intake & Output 03/12/18 03/13/18 03/13/18 18:59 06:59 18:59 Intake Total 950 / 950 Output Total 180 / 180 Balance 770 / 770 Weight 54.431 kg 51.2 kg 51.2 kg Intake: IV 900 / 900 LR 1000 mL Inj 1,000 ML @ 84 900 / 900 mls/hr IV.CONT .[id number] [facility] Rx# :[id number] Oral 50 / 50 Output: Urine 180 / 180 Other: # Voids 1 # Bowel Movements 0 Weight On Admission 51.2 kg Result Diagrams: 03/13/18 03:26 03/13/18 03:26 Imaging: Impressions Lumbar Spine CT 03/12/18 00:00 CONCLUSION: At L1 there is a severe compression fracture with retropulsion and moderate to severe central canal lateral recess stenosis. At L4-5 there is a severe central canal stenosis from grade 1 anterolisthesis, disc protrusion and facet arthropathy. At L3-4 there is a moderate central canal lateral recess stenosis from disc protrusion, minimal anterolisthesis and facet arthropathy. Lumbar Spine MRI 03/12/18 00:00 CONCLUSION: 1. At L1 there is a severe compression fracture with retropulsion resulting in a focal moderate to severe canal and lateral recess stenosis. 2. At L3-4 there is a moderate central canal and lateral recess stenosis from disc protrusion and facet arthropathy. 3. At L4-5 there is a severe focal severe canal stenosis from grade 1 anterolisthesis listhesis, disc protrusion and facet arthropathy. Abdomen/Pelvis CT 03/12/18 12:31 CONCLUSION: 1. Small to moderate-sized pneumothorax on the right. 2. 4.1 x 3.5 cm well-circumscribed cystic mass in the right adnexa. 3. Severe compression fracture of L1. Compression fracture at L1 is new since previous of 11/13/2016. Hip X-Ray 03/12/18 12:31 CONCLUSION: No acute bony abnormality is identified. Soft tissue abnormality in the subcutaneous tissues of the right groin. Please see above. Ribs X-Ray 03/12/18 12:33 CONCLUSION: 1. The examination demonstrates a moderate-sized pneumothorax on the right with fractures involving the right fourth, fifth and sixth ribs. 2. Incidental note made of small areas of granulomatous calcification in the lung bases bilaterally. Chest X-Ray 03/13/18 09:52 CONCLUSION: No pneumothorax is identified with right chest tube in place. Disinhibition Score: 19.25 Aggression Score: 14.00 Lability Score: 14.00 Agitated Behavior Total Score: 17 - Exam [facility] ROOM: Awake alert oriented Symmetric although weak in upper and lower extremities due to Parkinson's disease Neurologically appears to be intact Hemodynamic/Cardiac: Hemodynamically stable Pulmonary/Respiratory: Right chest tube placed patient tender over the right chest bilateral breath sounds lung fully expanded Abdomen/GI Nutrition: Abdomen soft active bowel sounds Renal/I&O: Renal function preserved Assessment and Plan Attestation: Critical care 32 minutes
[2018-03-13] MEDS ORDERED: Sodium Chlor 0.9% Inj 250 ML ONE (14:10)
[2018-03-13] MEDS ORDERED: ceFAZolin 2 GM Premix Inj 2 GM/50 ML PIGGYBACK IV.SIG ONE (14:10)
[2018-03-13] MEDS ORDERED: Bisacodyl 10 MG Supp RECTAL PRN (14:13)
--- NOTE | 2018-03-13 16:06 | IR ---
EXAM DATE: 03/13/2018 12:00 AM EDT AGE/SEX: 77 years / Female INDICATIONS: Patient presents with right pneumothorax in need of chest tube placement. CLINICAL DATA: This is the patient's initial encounter. Patient reports that signs and symptoms have been present for 1 day and indicates a pain score of 0/10. MEDICAL/SURGICAL HISTORY: Carcinoma, breast. Parkinson's disease. Osteoporosis. . COMPARISON: No prior exams available for comparison. FLUORO TIME (min): 1:14 IMAGE SERIES: 1 ACCESS SITE: SEDATION TIME (min): 20 MEDICATION(S): 1mg midazolam (Versed) IV 50mcg fentanyl (Sublimaze) IV DEVICE(S): 10 Occitan locking catheter Sophia . . PROCEDURE: 1. Fluoroscopically guided chest tube placement. 2. Conscious sedation with continuous EKG and oximetry monitoring. The risks, benefits and alternatives to the procedure were explained and verbal and written consent w as obtained. The site was prepped in sterile fashion. Full sterile technique was used, including ca p, mask, sterile gloves and gown and a large sterile sheet. Hand hygiene and 2% chlorhexidine and/or betadine/alcohol prep was utilized per protocol for cutaneous antisepsis. The skin and subcutaneous tissues were infiltrated with local anesthetic solution. With fluoroscopic guidance the chest was punctured between the first and second interspace and the pr escribed catheter was placed in the lung apex. Wall suction was applied. Post procedure images demon strate satisfactory position of the tube. The catheter was sutured in place and a Percu-Stay was waylon lied. Conscious sedation was performed with the prescribed dosages and duration as above in the presence of an independent trained radiology nurse to assist in the monitoring of the patient. EKG and oximetry remained stable throughout the procedure. The patient tolerated the procedure well and there were n o complications. The patient was sent to post anesthesia recovery in stable condition. CONCLUSION: 1. Uncomplicated chest tube placement as above. Electronically signed by: Jared Akins MD 03/13/2018 4:05 PM EDT
[2018-03-13 16:49] LABS: ABG PCO2 33 mmHg (38-42); ABG PO2 259 mmHG (61-120)
[2018-03-13] MEDS ORDERED: Bupivacaine 0.25% Inj 50 ML MDV Vial INFILTRATN ONE (17:07)
[2018-03-13] MEDS ORDERED: HYDROmorphone PCA Inj 6 MG/30 ML PCA.VIAL PCA PRN (17:34)
[2018-03-13] MEDS ORDERED: Naloxone Inj 0.4 MG/ML Vial IV.PUSH PRN (17:34)
--- NOTE | 2018-03-13 17:41 | P.OP ---
Preoperative Diagnosis: Unstable burst L1 fracture Postoperative Diagnosis: Unstable burst L1 fracture Date of procedure: 03/13/18 Procedure: L1 laminectomy, open reduction and internal fixation of L1 fracture, T11 to L3 posterolateral fusion using autologous iliac crest bone graft, T11 L3 segmental instrumental fixation using transpedicular screws and rods, microsurgical dissection Anesthesia: DANYA Surgeon: Rajesh Sanchez MD Pathology: none sent Operation and Findings: INDICATIONS FOR THE SURGICAL PROCEDURE Ms Alcantar is a 77 year-old female who presented with severe mechanical back pain related to an unstable L1 burst fracture. She failed medical nonsurgical management. A surgical decompression with reduction of the fracture and arthrodhesis were indicated as the most appropriate treatment. The [id number] details of the procedure, indications, alternatives, risks and potential complications were fully discussed with the patient. The patient fully understood. All questions were answered. No guarantees were given. The patient voiced requesting the procedure and provided informed consents. The patient had been offered the alternative of delaying the procedure and continuing with nonsurgical management. DETAILS OF THE SURGICAL PROCEDURE Prior to the procedure,the surgical incision was marked in the preoperative surgical holding room, and the procedure, risks, and potential complications revisited with the patient. Placement of electrodes for intraoperative neurophysiological monitoring was completed. The patient was taken to the operative room, and following induction of general anesthesia, endotracheal intubation was performed. A Murillo catheter bilateral Jaswinder and sequential compression devices were placed and kept throughout the procedure. The patient was carefully rolled into the prone position over a Yandel table with a gell rolls. All pressure points were carefully padded with eggcrate mattress. The eyes were tapped shut after ointment was applied by the anesthesiologist to prevent corneal abrasion. A Roque hugger was placed over the exposed lower body to maintain control of the core body temperature. The electrophysiological team placed the needles and electrodes in their proper location and baseline SSEP's and motor evoked potentials were registered. The thoracic lumbar region was prepped and draped in the usual sterile fashion. A localizing X-ray was performed with the C-arm and the fracture was localized. A medial incision was outlined from the spinous process of T12 down to L3. Surgical Approach The skin incision was made with a #10 blade. Dissection was carried out through the thoracolumbar fascia with a Bovie. The spinous process of T11 down to L3 were exposed and a subperiosteal dissection was performed over the spinous process, lamina facet and transverse processes of T11 down to L3. Bilateral self retaining retractors were placed on incisions. Instrumental fixation At this point in the procedure, placement of bilateral transpedicular screws was necessary for stabilization of the spine. The levels were carefully marked with a TPS and bilateral transpedicular screws were placed using a standard fashion. Initially, the entry point for the screw was selected anatomically at the junction of the facet, with the transverse process, and the pars interarticularis. This was started with a Giamshetti needle followed by the use of a villalta wire. A tap was used to create the threads for the screws. Finally, bilateral transpedicular screws were carefully placed bilaterally at T11 down to L3 under fluoroscopic visualization. It was not possibe to place a solid screw at L1. An appropriate purchase was achieved with all other screws. The position of each screw was assessed anatomically with an AP, lateral, oblique Xrays. An intraoperative scan view of the spine was then performed using the iso-centric c -arm. Each lumbar screw was then assessed electrophysiologically with a nerve stimulator. Finally, bilateral transpedicular screws were carefully placed bilaterally at T11 down to L3 under fluoroscopic visualization. An appropriate purchase was achieved with all screws. The position of each screw was assessed anatomically with an AP, lateral, oblique Xrays. An intraoperative scan view of the spine was then performed using the iso-centric c-arm. Each lumbar screw was then assessed electrophysiologically with a nerve stimulator. Open reduction of the fracture Once all screws were in position, the operative microscope was draped in the usual sterile fashion and brought to the field. The rest of the surgical procedure was performed using microdissection technique with the exception of the closure. Under the operative microscope, a laminectomy was performed at L1. It was necessary to drill the facet entrance to the pedicle in order to allow access to the anterior surface of the thecal sac without retraction on the spinal cord. Epidural veins were coagulated with the bipolar and incised with the microscissors. The retropulsed bones were assessed with an nerve hook. They were causing significant compression of the dural sac. A shoe impactor was placed on the anterior epidural space and the bone fragments were impacted back into the vertebral body under fluoroscopic guidance. An excellent decompression was achieved using this technique. HARVESTING OF ILIAC CREST BONE An incision was then made over the patient's right posterior iliac crest. The fascia was carefully opened with a Bovie and the posterior iliac crest was exposed. A small cortical window was created with an osteotome. Cancellous bone was then harvested, to be used during the interbody arthrodesis and the posterolateral fusion. Once an appropriate amount of bone was obtained, the incision was irrigated with antibiotic solution and hemostasis secured by packing the iliac crest with Surgicel. The cortical window was then repositioned and secured using 0 Vicryl sutures. The incision was irrigated and the fascia was closed with interrupted 0 Vicryl sutures. The subcutaneous tissue was approximated with 3-0 Vicryl sutures. Posterolateral fusion Then, the lateral gutters of the spine, facets and transverse processes were carefully decorticated with a TPS drill in preparation for the posterior lateral fusion. The incision was thoroughly irrigated with antibiotic solution. The posterolateral fusion was performed by carefully packing the gutters of the spine with a autologous iliac crest bone graft combined with demineralized bone matrix. Completion of the Procedure The rods were brought to the field. Sequential application of the cap was achieved which allowed for further correction of the kyphosis. Final tightening of all screws was achieved with a torque wrench. The incision was thoroughly irrigated with several liters of antibiotic solution. The decompression was reassessed with an nerve hook and found to be appropriate. Seven mm Yandel- Danielle drain was left on the epidural space and was then externalized through a separate stab incision. The incision was then closed in layers. 0 Vicryl with interrupted sutures were used to close the thoracolumbar fascia. The superficial fascia was closed with 0 Vicryl sutures. Three-0 Vicryl was used to close the subcutaneous tissue. The skin was closed with 4-0 running subcuticular Vicryl. Dermabond was applied to the skin. The drain was secured 3- 0 nylon. At the end of the procedure the sponges, needles, and instrument counts were all correct. Estimated blood loss was 300cc's. No complications occurred. The patient received prophylactic antibiotics. The patient was then extubated and transferred to the recovery room in stable condition. The entire procedure was performed using electrophysiological monitor of the electromyogram, evoked potential and sphincters. No intraoperative abnormalities were detected.
[2018-03-13] MEDS ORDERED: HYDROmorphone PCA Inj 6 MG/30 ML PCA.VIAL PCA ONE (18:19)
[2018-03-13] MEDS ORDERED: *morphine SULFATE 10 MG/ML PERIprocedure ONLY ONE (18:21)
[2018-03-13] MEDS ORDERED: *Meperidine Inj 25 MG/ML Vial PERIprocedural Use ONLY ONE (18:43)
--- NOTE | 2018-03-13 18:57 | XR ---
EXAM DATE: 03/13/2018 12:00 AM EDT AGE/SEX: 77 years / Female INDICATIONS: Fusion T11 to L3 with screws and rods placement. CLINICAL DATA: This is the patient's subsequent encounter. Patient reports that signs and symptoms h ave been present for 2 days and indicates a pain score of Nonresponsive. MEDICAL/SURGICAL HISTORY: . Trauma. None. COMPARISON: No prior exams available for comparison. FINDINGS: There is transpedicular screw and gale fixation at 2 levels on both sides of an L1 compression fractur e. Drain present. No complications identified. CONCLUSION: Spine fixation as above. Electronically signed by: Hilton Bergeron MD 03/13/2018 6:55 PM EDT
[2018-03-13] MEDS: ceFAZolin 2 GM Premix Inj 2 GM/100 ML BAG IV.SIG SCH (22:15)
[2018-03-13] MEDS: Ketorolac Inj 30 MG/ML (IVP) Vial IV.PUSH SCH (22:16)
[2018-03-14] MEDS: Morphine Sulfate Inj 2 MG/ML Vial IV.PUSH PRN ×2 (00:13→07:34)
--- NOTE | 2018-03-14 03:59 | XR ---
EXAM DATE: 03/14/2018 9:52 AM EDT AGE/SEX: 77 years / Female INDICATIONS: Status post chest tube placement. CLINICAL DATA: This is the patient's subsequent encounter. Patient reports that signs and symptoms h ave been present for 3 days and indicates a pain score of Nonresponsive. MEDICAL/SURGICAL HISTORY: None. . Fusion T11 to L3. COMPARISON: [facility], CHEST EXPIRATION ONLY, 03/13/2018. . FINDINGS: There is a right-sided chest tube in place. A pneumothorax is not seen. Lungs are grossly clear. The heart size is normal. Clips are seen over the lower left chest. Surgical hardware seen in the lower t horacic and upper lumbar spine. Right-sided rib fractures are seen. Calcified granulomas are seen at the lower lungs. CONCLUSION: Right chest tube without a pneumothorax seen. Right rib fractures. Electronically signed by: Leonel Roman MD 03/14/2018 3:58 AM EDT
[2018-03-14] MEDS: Chlorhexidine Gluconate 2% 1 Pack (2 Cloths) TOPICAL SCH (04:20)
[2018-03-14 04:35] LABS: Baso % (Auto) 0.2 % (0.0-2.0); Hematocrit 32.4 % (35.0-46.0); Hemoglobin 11.2 gm/dL (11.6-15.3); Lymph # (Auto) 0.4 th/mm3 (1.0-4.8); Lymph % (Auto) 3.6 % (9.0-44.0); Mean Corpuscular HGB Conc 34.6 % (32.0-36.0); Mean Corpuscular Hemoglobin 30.6 pg (27.0-34.0); Mean Corpuscular Volume 88.5 fL (80.0-100.0); Mean Platelet Volume 7.3 fL (7.0-11.0); Mono # (Auto) 1.1 th/mm3 (0.0-0.9); Mono % (Auto) 10.3 % (0.0-8.0); Neut # (Auto) 9.3 th/mm3 (1.8-7.7); Neut % (Auto) 85.9 % (16.0-70.0); Platelet Count 244 th/mm3 (150-450); Red Blood Count 3.66 mil/mm3 (4.00-5.30); Red Cell Distribution Width 13.2 % (11.6-17.2); White Blood Count 10.9 th/mm3 (4.0-11.0)
[2018-03-14 04:56] LABS: Calcium 8.2 mg/dL (8.5-10.1); Carbon Dioxide 31.9 meq/L (21.0-32.0); Potassium 4.1 meq/L (3.5-5.1)
[2018-03-14] MEDS: Ketorolac Inj 30 MG/ML (IVP) Vial IV.PUSH SCH ×3 (05:43→21:28)
[2018-03-14] MEDS: ceFAZolin 2 GM Premix Inj 2 GM/100 ML BAG IV.SIG SCH ×2 (05:44→14:21)
[2018-03-14] MEDS: Calcium/Vitamin D 250/125 MG Tablet PO SCH (08:42)
[2018-03-14] MEDS: Famotidine 20 MG Tablet PO SCH ×2 (08:42→21:28)
--- NOTE | 2018-03-14 11:09 | P.PNCC ---
Subjective Brief History: 77-year-old female fell and sustained chest and back injury about 4 5 days ago in [place]. Flu here in an airplane and then came to the emergency room. Patient was noted to have right serial rib fractures and a right pneumothorax as well as an L1 severe compression fracture with retropulsion. Patient was found to be somewhat weak however she has known Parkinson's disease and she is evaluated by neurosurgery and trauma surgery service is admitting the patient for further care 24 Hour Review/Hospital Course: 03/13/2018 Through the night patient has been stable Neurologically she is this morning intact although she is fairly weak in general but symmetric Hemodynamically intact Bilateral good breath sounds patient had right chest tube placed by interventional radiology and lungs fully expanded Abdomen soft active bowel sounds Patient is to undergo L1 posterior instrumentation and stabilization by Dr. Heller 03/14/2018 Patient is slightly somnolent but alert and oriented answers questions appropriately L1 laminectomy, ORIF T11 to L3 posterolateral fusion using autologous iliac crest bone graft, T11 L3 transpedicular screws and rods Neurologically patient is intact Hemodynamically stable Bilateral breath sounds with good inspiratory effort Abdomen soft active bowel sounds and patient is started on a diet Restart levodopa / carbodopa i.e. Sinemet for Parkinson's disease Renal function preserved Patient will require aggressive physical therapy and should be referred to the [facility] rehab Consult Dr. Holliday Objective Vital Signs / I&O: Vital Signs 03/13/18 11:30 03/13/18 18:40 03/13/18 19:00 Temperature 97.5 F L 97.8 F Pulse Rate 98 H 91 H 80 Respiratory Rate 16 20 20 Blood Pressure 180/84 H 148/71 H 93/50 L Pulse Oximetry 96 95 95 03/13/18 19:15 03/13/18 19:30 03/13/18 19:50 Temperature 97.6 F Pulse Rate 93 H 92 H 93 H Respiratory Rate 20 20 20 Blood Pressure 90/54 L 94/51 L 100/56 L Pulse Oximetry 95 95 95 03/13/18 20:00 03/13/18 21:00 03/13/18 21:14 Temperature 97.6 F 97.6 F Pulse Rate 109 H 100 H Respiratory Rate 20 22 Blood Pressure 115/59 L 114/67 Pulse Oximetry 95 97 98 03/13/18 22:00 03/13/18 22:46 03/14/18 00:00 Temperature 97.9 F Pulse Rate 89 110 H Respiratory Rate 15 22 Blood Pressure 102/59 L 125/61 Pulse Oximetry 94 L 03/14/18 01:00 03/14/18 02:00 03/14/18 03:00 Temperature Pulse Rate 85 87 99 H Respiratory Rate 20 Blood Pressure 99/60 L 105/50 L 136/68 Pulse Oximetry 03/14/18 04:00 03/14/18 05:49 03/14/18 05:50 Temperature 98.1 F Pulse Rate 82 83 83 Respiratory Rate 19 Blood Pressure 104/51 L 99/50 L Pulse Oximetry 94 L 03/14/18 08:00 Temperature 98 F Pulse Rate 117 H Respiratory Rate 25 H Blood Pressure 122/65 Pulse Oximetry Intake & Output 03/13/18 03/14/18 03/14/18 18:59 06:59 18:59 Intake Total 3500 / 3500 7700 / 7700 Output Total 1830 / 1830 3480 / 3480 Balance 1670 / 1670 4220 / 4220 Weight 51.2 kg 51.7 kg Intake: IV 950 / 950 200 / 200 LR 1000 mL Inj 1,000 ML @ 84 900 / 900 mls/hr IV.CONT .[id number] [facility] Rx# :[id number] Ancef 2 GM Premix Inj 2 gm In 200 / 200 100 ml @ 100 mls/hr IV.SIG Q8H [facility] Rx#:[id number] Ancef 2 GM Premix Inj 2 gm In 50 / 50 50 ml @ 0 mls/hr IV.SIG .[facility] Rx#:[id number] Oral 50 / 50 0 / 0 Anesthesia Amount 2500 / 2500 7500 / 7500 Output: Urine 630 / 630 900 / 900 Estimated Blood Loss 300 / 300 1200 / 1200 Urine Amount (Catheter) 900 / 900 1000 / 1000 Indwelling Urethral Catheter 900 / 900 1000 / 1000 Wound Drainage 340 / 340 # 1 Back 340 / 340 Chest Tube Drainage 40 / 40 Right Upper Anterior 40 / 40 Other: # Voids 1 1 # Bowel Movements 0 0 Weight On Admission 51.2 kg Result Diagrams: 03/14/18 03:50 03/14/18 03:50 Imaging: Impressions Chest Tube Insertion 03/13/18 00:00 CONCLUSION: 1. Uncomplicated chest tube placement as above. Thoracolumbar Spine 03/13/18 00:00 CONCLUSION: Spine fixation as above. Chest X-Ray 03/14/18 09:52 CONCLUSION: Right chest tube without a pneumothorax seen. Right rib fractures. Disinhibition Score: 26.25 Aggression Score: 17.50 Lability Score: 23.32 Agitated Behavior Total Score: 23 Assessment and Plan Attestation: Critical care time 32 minutes
[2018-03-14] MEDS: Senna/Docusate Sodium 8.6/50 MG Tablet PO SCH ×2 (11:48→21:29)
[2018-03-14] MEDS: Lidocaine 5% Patch T-DERMAL SCH (12:00)
[2018-03-14] MEDS: Methocarbamol 500 MG Tablet PO SCH ×2 (13:40→21:29)
--- NOTE | 2018-03-14 16:16 | P.PNNS ---
Subjective Interval history: No acute events overnight. Physical Exam Vital signs: Vital Signs 03/13/18 18:40 03/13/18 19:00 03/13/18 19:15 Temperature 97.8 F Pulse Rate 91 H 80 93 H Respiratory Rate 20 20 20 Blood Pressure 148/71 H 93/50 L 90/54 L Pulse Oximetry 95 95 95 03/13/18 19:30 03/13/18 19:50 03/13/18 20:00 Temperature 97.6 F 97.6 F Pulse Rate 92 H 93 H 109 H Respiratory Rate 20 20 20 Blood Pressure 94/51 L 100/56 L 115/59 L Pulse Oximetry 95 95 95 03/13/18 21:00 03/13/18 21:14 03/13/18 22:00 Temperature 97.6 F Pulse Rate 100 H 89 Respiratory Rate 22 Blood Pressure 114/67 102/59 L Pulse Oximetry 97 98 03/13/18 22:46 03/14/18 00:00 03/14/18 01:00 Temperature 97.9 F Pulse Rate 110 H 85 Respiratory Rate 15 22 20 Blood Pressure 125/61 99/60 L Pulse Oximetry 94 L 03/14/18 02:00 03/14/18 03:00 03/14/18 04:00 Temperature 98.1 F Pulse Rate 87 99 H 82 Respiratory Rate 19 Blood Pressure 105/50 L 136/68 104/51 L Pulse Oximetry 94 L 03/14/18 05:49 03/14/18 05:50 03/14/18 08:00 Temperature 98 F Pulse Rate 83 83 117 H Respiratory Rate 25 H Blood Pressure 99/50 L 122/65 Pulse Oximetry 03/14/18 10:00 03/14/18 12:00 03/14/18 14:00 Temperature 98.4 F Pulse Rate 117 H 105 H 118 H Respiratory Rate 16 Blood Pressure 108/53 L Pulse Oximetry Intake & Output 03/13/18 03/14/18 03/14/18 18:59 06:59 18:59 Intake Total 3500 / 3500 7700 / 7700 985 / 985 Output Total 1830 / 1830 3480 / 3480 Balance 1670 / 1670 4220 / 4220 985 / 985 Weight 51.2 kg 51.7 kg Intake: IV 950 / 950 200 / 200 985 / 985 LR 1000 mL Inj 1,000 ML @ 84 900 / 900 mls/hr IV.[facility] .[id number] [facility] Rx# :[id number] NS + KCl 20 mEq Inj 1,000 ML @ 985 / 985 60 mls/hr IV.CONT .[id number] [facility] Rx#:[id number] Ancef 2 GM Premix Inj 2 gm In 200 / 200 100 ml @ 100 mls/hr IV.SIG Q8H [facility] Rx#:[id number] Ancef 2 GM Premix Inj 2 gm In 50 / 50 50 ml @ 0 mls/hr IV.SIG .STK- [facility] Rx#:[id number] Oral 50 / 50 0 / 0 Anesthesia Amount 2500 / 2500 7500 / 7500 Output: Urine 630 / 630 900 / 900 Estimated Blood Loss 300 / 300 1200 / 1200 Urine Amount (Catheter) 900 / 900 1000 / 1000 Indwelling Urethral Catheter 900 / 900 1000 / 1000 Wound Drainage 340 / 340 # 1 Back 340 / 340 Chest Tube Drainage 40 / 40 Right Upper Anterior 40 / 40 Other: # Voids 1 1 # Bowel Movements 0 0 Weight On Admission 51.2 kg Narrative: Opens eyes to voice Alert and oriented to self Confused, mumbling Moving all extremities spontaneously with anti-gravity strength Does not follow commands reliably Murillo catheter in place Incision: clean, dry, intact TOMASA drain in place - Urinary Catheter Management Indwelling Urethral Catheter Cath placed during this visit: yes Reason for continuing: Hourly intake/output Insertion date: 03/13/18 Insertion time: 13:30 Assessment and Plan - Plan 77 y/o female s/p T11-L3 instrumentation, L1 laminectomy/reduction of fracture by Dr. Sanchez on 03/13/18. Post-operatively neurologically stable. Plan: Continue OTMASA drain PT/OT Pain control Parkinson's medication
[2018-03-14] MEDS: traZODone 50 MG Tablet PO SCH (21:28)
[2018-03-15] MEDS: Chlorhexidine Gluconate 2% 1 Pack (2 Cloths) TOPICAL SCH (03:41)
[2018-03-15 04:12] LABS: Baso % (Auto) 0.3 % (0.0-2.0); Eos % (Auto) 1.4 % (0.0-4.0); Hematocrit 30.3 % (35.0-46.0); Hemoglobin 10.4 gm/dL (11.6-15.3); Lymph # (Auto) 0.3 th/mm3 (1.0-4.8); Lymph % (Auto) 11.2 % (9.0-44.0); Mean Corpuscular HGB Conc 34.4 % (32.0-36.0); Mean Corpuscular Hemoglobin 30.7 pg (27.0-34.0); Mean Corpuscular Volume 89.1 fL (80.0-100.0); Mean Platelet Volume 7.2 fL (7.0-11.0); Mono # (Auto) 0.7 th/mm3 (0.0-0.9); Mono % (Auto) 29.3 % (0.0-8.0); Neut # (Auto) 1.5 th/mm3 (1.8-7.7); Neut % (Auto) 57.8 % (16.0-70.0); Platelet Count 187 th/mm3 (150-450); Red Cell Distribution Width 13.6 % (11.6-17.2); White Blood Count 2.6 th/mm3 (4.0-11.0)
[2018-03-15 04:35] LABS: Alanine Aminotransferase 25 U/L (10-53); Albumin 2.7 g/dL (3.4-5.0); Alkaline Phosphatase 103 U/L (45-117); Anion Gap 9 meq/L (5-15); Aspartate Aminotransferase 83 U/L (15-37); Blood Urea Nitrogen 24 mg/dL (7-18); Calcium 8.2 mg/dL (8.5-10.1); Chloride 104 meq/L (98-107); Glomerular Filtration Rate Greater Than 89 mL/min (>89); Glucose,Random 116 mg/dL (74-106); Potassium 4.1 meq/L (3.5-5.1); Sodium 140 meq/L (136-145); Total Protein 5.6 g/dL (6.4-8.2)
[2018-03-15] MEDS: Ketorolac Inj 30 MG/ML (IVP) Vial IV.PUSH SCH ×3 (05:36→21:47)
[2018-03-15] MEDS: Methocarbamol 500 MG Tablet PO SCH ×3 (05:36→21:47)
--- NOTE | 2018-03-15 06:32 | XR ---
EXAM DATE: 03/15/2018 6:00 AM EDT AGE/SEX: 77 years / Female INDICATIONS: Shortness of breath. CLINICAL DATA: This is the patient's subsequent encounter. Patient reports that signs and symptoms h ave been present for 3 days and indicates a pain score of Nonresponsive. MEDICAL/SURGICAL HISTORY: Carcinoma, breast. Parkinson's disease. Osteoporosis. None. COMPARISON: No prior exams available for comparison. FINDINGS: There is a right-sided chest tube. A pneumothorax is not seen. The heart size is normal. Lungs are fr ee of focal consolidation. Granulomas are seen at the lung bases. Surgical hardware seen in the lower thoracic and lumbar spine. CONCLUSION: Right chest tube without a pneumothorax seen. Electronically signed by: Leonel Roman MD 03/15/2018 6:31 AM EDT
[2018-03-15] MEDS: Calcium/Vitamin D 250/125 MG Tablet PO SCH (08:46)
[2018-03-15] MEDS: Senna/Docusate Sodium 8.6/50 MG Tablet PO SCH ×2 (08:46→21:47)
[2018-03-15] MEDS: Lidocaine 5% Patch T-DERMAL SCH (08:47)
[2018-03-15] MEDS: Famotidine 20 MG Tablet PO SCH ×2 (08:48→21:48)
[2018-03-15] MEDS ORDERED: Enoxaparin Inj 40 MG/0.4 ML Syringe SQ SCH (09:00)
--- NOTE | 2018-03-15 10:55 | P.PNNS ---
Subjective Interval history: No acute events overnight. Physical Exam Vital signs: Vital Signs 03/14/18 12:00 03/14/18 14:00 03/14/18 16:00 Temperature 98.4 F 98 F Pulse Rate 105 H 118 H 128 H Respiratory Rate 16 15 Blood Pressure 108/53 L 157/66 H Pulse Oximetry 03/14/18 18:00 03/14/18 20:00 03/14/18 21:14 Temperature 98.2 F Pulse Rate 123 H 95 H Respiratory Rate 24 Blood Pressure 143/62 H Pulse Oximetry 96 96 03/14/18 22:00 03/15/18 00:00 03/15/18 02:00 Temperature 98.5 F Pulse Rate 108 H 101 H 120 H Respiratory Rate 22 Blood Pressure 140/62 Pulse Oximetry 94 L 03/15/18 04:00 03/15/18 06:00 03/15/18 08:00 Temperature 97.8 F Pulse Rate 104 H 87 122 H Respiratory Rate 20 Blood Pressure 143/65 H Pulse Oximetry 96 Intake & Output 03/14/18 03/15/18 03/15/18 18:59 06:59 18:59 Intake Total 1655 / 1655 1220 / 1220 Output Total 680 / 680 385 / 385 Balance 975 / 975 835 / 835 Weight 51.6 kg Intake: IV 985 / 985 1100 / 1100 NS + KCl 20 mEq Inj 1,000 ML @ 985 / 985 1000 / 1000 60 mls/hr IV.CONT .[id number] [facility] Rx#:[id number] Ancef 2 GM Premix Inj 2 gm In 100 / 100 100 ml @ 100 mls/hr IV.SIG Q8H [facility] Rx#:[id number] Oral 670 / 670 120 / 120 Output: Urine Amount (Catheter) 600 / 600 325 / 325 Indwelling Urethral Catheter 600 / 600 325 / 325 Wound Drainage 60 / 60 50 / 50 # 1 Back 60 / 60 50 / 50 Wound Vac Amount 0 / 0 Back 0 / 0 Chest Tube Drainage 20 / 20 10 / 10 Right Upper Anterior 20 / 20 10 / 10 Narrative: Opens eyes to voice Alert and oriented to self Confused, mumbling Moving all extremities spontaneously with anti-gravity strength Does not follow commands reliably Murillo catheter in place Incision: clean, dry, intact TOMASA drain in place - Urinary Catheter Management Indwelling Urethral Catheter Cath placed during this visit: yes Reason for continuing: Hourly intake/output Insertion date: 03/13/18 Insertion time: 13:30 Assessment and Plan - Plan 77 y/o female s/p T11-L3 instrumentation, L1 laminectomy/reduction of fracture by Dr. Sanchez on 03/13/18. Post-operatively neurologically stable. Plan: Continue TOMASA drain PT/OT Pain control Parkinson's medication
--- NOTE | 2018-03-15 11:08 | P.PNCC ---
Subjective Brief History: 77-year-old female fell and sustained chest and back injury about 4 5 days ago in [place]. Flu here in an airplane and then came to the emergency room. Patient was noted to have right serial rib fractures and a right pneumothorax as well as an L1 severe compression fracture with retropulsion. Patient was found to be somewhat weak however she has known Parkinson's disease and she is evaluated by neurosurgery and trauma surgery service is admitting the patient for further care 24 Hour Review/Hospital Course: 03/13/2018 Through the night patient has been stable Neurologically she is this morning intact although she is fairly weak in general but symmetric Hemodynamically intact Bilateral good breath sounds patient had right chest tube placed by interventional radiology and lungs fully expanded Abdomen soft active bowel sounds Patient is to undergo L1 posterior instrumentation and stabilization by Dr. Heller 03/14/2018 Patient is slightly somnolent but alert and oriented answers questions appropriately L1 laminectomy, ORIF T11 to L3 posterolateral fusion using autologous iliac crest bone graft, T11 L3 transpedicular screws and rods Neurologically patient is intact Hemodynamically stable Bilateral breath sounds with good inspiratory effort Abdomen soft active bowel sounds and patient is started on a diet Restart levodopa / carbodopa i.e. Sinemet for Parkinson's disease Renal function preserved Patient will require aggressive physical therapy and should be referred to the [facility] rehab Consult Dr. Holliday 03/15/2018 Patient is awake alert oriented but somewhat confused at times Neurologically fully intact Resume regular diet Aggressive physical therapy out of bed with TLSO brace Patient is ready to be transferred to rehab at this time Transfer to floor and then to rehab Objective Vital Signs / I&O: Vital Signs 03/14/18 12:00 03/14/18 14:00 03/14/18 16:00 Temperature 98.4 F 98 F Pulse Rate 105 H 118 H 128 H Respiratory Rate 16 15 Blood Pressure 108/53 L 157/66 H Pulse Oximetry 03/14/18 18:00 03/14/18 20:00 03/14/18 21:14 Temperature 98.2 F Pulse Rate 123 H 95 H Respiratory Rate 24 Blood Pressure 143/62 H Pulse Oximetry 96 96 03/14/18 22:00 03/15/18 00:00 03/15/18 02:00 Temperature 98.5 F Pulse Rate 108 H 101 H 120 H Respiratory Rate 22 Blood Pressure 140/62 Pulse Oximetry 94 L 03/15/18 04:00 03/15/18 06:00 03/15/18 08:00 Temperature 97.8 F Pulse Rate 104 H 87 122 H Respiratory Rate 20 17 Blood Pressure 143/65 H Pulse Oximetry 96 Intake & Output 03/14/18 03/15/18 03/15/18 18:59 06:59 18:59 Intake Total 1655 / 1655 1220 / 1220 Output Total 680 / 680 385 / 385 Balance 975 / 975 835 / 835 Weight 51.6 kg Intake: IV 985 / 985 1100 / 1100 NS + KCl 20 mEq Inj 1,000 ML @ 985 / 985 1000 / 1000 60 mls/hr IV.CONT .[id number] [facility] Rx#:[id number] Ancef 2 GM Premix Inj 2 gm In 100 / 100 100 ml @ 100 mls/hr IV.SIG Q8H [facility] Rx#:[id number] Oral 670 / 670 120 / 120 Output: Urine Amount (Catheter) 600 / 600 325 / 325 Indwelling Urethral Catheter 600 / 600 325 / 325 Wound Drainage 60 / 60 50 / 50 # 1 Back 60 / 60 50 / 50 Wound Vac Amount 0 / 0 Back 0 / 0 Chest Tube Drainage 20 / 20 10 / 10 Right Upper Anterior 20 / 20 10 / 10 Result Diagrams: 03/15/18 03:26 03/15/18 03:26 Imaging: Impressions Chest X-Ray 03/15/18 06:00 CONCLUSION: Right chest tube without a pneumothorax seen. Disinhibition Score: 26.25 Aggression Score: 17.50 Lability Score: 18.66 Agitated Behavior Total Score: 22
[2018-03-15] MEDS: traZODone 50 MG Tablet PO SCH (21:47)
[2018-03-16] MEDS: Ketorolac Inj 30 MG/ML (IVP) Vial IV.PUSH SCH ×2 (05:48→14:32)
[2018-03-16] MEDS: Methocarbamol 500 MG Tablet PO SCH ×2 (05:48→15:02)
--- NOTE | 2018-03-16 06:41 | XR ---
EXAM DATE: 03/16/2018 6:00 AM EDT AGE/SEX: 77 years / Female INDICATIONS: Short of breath, follow up trauma CLINICAL DATA: This is the patient's subsequent encounter. Patient reports that signs and symptoms h ave been present for 4 - 6 days and indicates a pain score of Nonresponsive. MEDICAL/SURGICAL HISTORY: Carcinoma, breast. Parkinson's disease. Osteoporosis. right rib fr actures, pneumothorax . fusion T11-L3, chest tube COMPARISON: C, CHEST 1V SINGLE AP, 03/15/2018. . FINDINGS: Right-sided chest tube has been removed in the interval. There is no significant pneumothorax. Redemo nstration of calcified granulomas in the lower lung zones. No new focal pleural or parenchymal opacit ies. Cardiomediastinal contours are within normal limits. Multiple right-sided rib fractures again no [place] with partially imaged thoracolumbar fixation hardware. CONCLUSION: 1. Interval removal of right-sided chest tube without pneumothorax. 2. Otherwise, no significant significant interval change. Electronically signed by: Kody Mcbride MD 03/16/2018 6:39 AM EDT
[2018-03-16 07:19] LABS: Baso % (Auto) 0.4 % (0.0-2.0); Eos % (Auto) 0.5 % (0.0-4.0); Hematocrit 26.5 % (35.0-46.0); Hemoglobin 9.2 gm/dL (11.6-15.3); Lymph # (Auto) 0.3 th/mm3 (1.0-4.8); Lymph % (Auto) 5.7 % (9.0-44.0); Mean Corpuscular HGB Conc 34.7 % (32.0-36.0); Mean Corpuscular Hemoglobin 30.2 pg (27.0-34.0); Mean Corpuscular Volume 87.2 fL (80.0-100.0); Mean Platelet Volume 7.3 fL (7.0-11.0); Mono # (Auto) 0.7 th/mm3 (0.0-0.9); Mono % (Auto) 14.3 % (0.0-8.0); Neut # (Auto) 3.9 th/mm3 (1.8-7.7); Neut % (Auto) 79.1 % (16.0-70.0); Platelet Count 207 th/mm3 (150-450); Red Blood Count 3.04 mil/mm3 (4.00-5.30); Red Cell Distribution Width 13.1 % (11.6-17.2); White Blood Count 4.9 th/mm3 (4.0-11.0)
[2018-03-16 07:53] LABS: Alanine Aminotransferase 11 U/L (10-53); Albumin 2.6 g/dL (3.4-5.0); Alkaline Phosphatase 113 U/L (45-117); Anion Gap 8 meq/L (5-15); Aspartate Aminotransferase 93 U/L (15-37); Blood Urea Nitrogen 12 mg/dL (7-18); Calcium 7.9 mg/dL (8.5-10.1); Carbon Dioxide 32.8 meq/L (21.0-32.0); Chloride 101 meq/L (98-107); Glomerular Filtration Rate Greater Than 89 mL/min (>89); Glucose,Random 121 mg/dL (74-106); Potassium 3.5 meq/L (3.5-5.1); Sodium 142 meq/L (136-145); Total Protein 5.3 g/dL (6.4-8.2)
[2018-03-16] MEDS: Famotidine 20 MG Tablet PO SCH ×2 (08:43→20:41)
[2018-03-16] MEDS: Senna/Docusate Sodium 8.6/50 MG Tablet PO SCH ×2 (08:43→20:41)
[2018-03-16] MEDS: Calcium/Vitamin D 250/125 MG Tablet PO SCH (08:43)
[2018-03-16] MEDS: Lidocaine 5% Patch T-DERMAL SCH (08:52)
[2018-03-16] MEDS: Enoxaparin Inj 30 MG/0.3 ML Syringe SQ SCH (11:09)
--- NOTE | 2018-03-16 12:17 | P.NPEVAL ---
Patient History - Record/History Review Reason for Referral: The patient is a 77 year old unknown handed female who is s/p concussion from a fall on 03/02/2018 but she presented to the [facility] on 03/12/2018 with complaints of thoracic pain. She has has right rib fracture and L1 fracture with retropulsion but was neurologically intact. Since admission, she has been somewhat confused at times, and is now in restraints. She is referred for baseline neurobehavioral status examination per trauma protocol to assess cognitive, behavioral and emotional aspects of the injury and to provide treatment recommendations. [facility] - History History Provided By: Patient - Medical History Medical History: Medical History (Last Reviewed 03/16/18 @ 10:08 by Marianela Lopez) Breast cancer Osteoporosis Parkinson disease - Family History Family History: Family History (Last Reviewed 03/16/18 @ 10:08 by Marianela Lopez) Other No pertinent family history - Tobacco History Second Hand Smoke Exposure: No Smoking Status: Never smoker - Alcohol History How Often Do You Have a Drink Containing Alcohol: Monthly or less - Substance Use History Substance History: No History of Abuse - Travel History Recent Travel in the [place] Within the Last 8 Weeks: No Recent Travel Out of the Country Within the Last 8 Weeks: No - Immunization History Tetanus Immunization: <5 Years Hx Influenza Vaccine This Season: No Medications Active Medications Acetaminophen (Tylenol) 650 mg PO Q4H PRN PRN Reason: Temp > 100.4 Al Hydroxide/Mg Hydroxide (Milk Of [place]) 30 ml PO Q12H PRN PRN Reason: Mild Constipation Albuterol (Duoneb Neb (Prn)) 1 ampul NEB Q2HR NEB PRN PRN Reason: SHORTNESS OF BREATH Bisacodyl (Dulcolax Supp) 10 mg RECTAL DAILY PRN PRN Reason: SEVERE CONSITIPATION Calcium/Vitamin D (Oscal With D 250/125 Mg) 2 tab PO DAILY [facility] Last Admin: 03/16/18 08:43 Dose: 2 tab Carbidopa/Levodopa (Sinemet 25/100 Mg) 2 tab PO AC BREAKFAST [facility] Last Admin: 03/16/18 06:30 Dose: 2 tab Enalaprilat (Vasotec Inj) 1.25 mg IV.PUSH Q8H PRN PRN Reason: HYPERTENSION Enoxaparin Sodium (Lovenox Inj) 30 mg SQ DAILY [facility] Last Admin: 03/16/18 11:09 Dose: 30 mg Famotidine (Pepcid) 20 mg PO BID [facility] Last Admin: 03/16/18 08:43 Dose: 20 mg Ketorolac Tromethamine (Toradol Inj) 30 mg IV.PUSH Q8HR [facility] Stop: 03/18/18 21:59 Last Admin: 03/16/18 05:48 Dose: 30 mg Lactulose (Lactulose Liq) 30 ml PO DAILY PRN PRN Reason: SEVERE CONSITIPATION Lidocaine HCl (Lidoderm 5% Patch.12 Hr) 1 patch T-DERMAL DAILY [facility] Last Admin: 03/16/18 08:52 Dose: 1 patch Methocarbamol (Robaxin) 500 mg PO Q8HR [facility] Last Admin: 03/16/18 05:48 Dose: 500 mg Naloxone HCl (Narcan Inj) 0.4 mg IV.PUSH PRN PRN PRN Reason: SEE LABEL COMMENTS Ondansetron HCl (Zofran Inj) 4 mg IV.PUSH Q6H PRN PRN Reason: NAUSEA OR VOMITING Oxybutynin Chloride (Ditropan) 5 mg PO BID [facility] Last Admin: 03/16/18 08:43 Dose: 5 mg Oxycodone/Acetaminophen (Percocet 5/325 Mg) 1 tab PO Q4H PRN PRN Reason: PAIN SCALE 1 TO 10 Last Admin: 03/16/18 05:47 Dose: 1 tab Patch Removal (Remove Old Patch) 1 each T-DERMAL HS [facility] Last Admin: 03/15/18 21:48 Dose: Not Given Senna/Docusate Sodium (Steffi-Colace) 1 tab PO BID [facility] Last Admin: 03/16/18 08:43 Dose: 1 tab Sennosides (Senokot) 17.2 mg PO Q12H PRN PRN Reason: Moderate Constipation Sodium Chloride (Ns Flush) 2 ml IV.FLUSH UNSCH PRN PRN Reason: FLUSH AFTER USING IV ACCESS Trazodone HCl (Desyrel) 50 mg PO [facility] Last Admin: 03/15/18 21:47 Dose: 50 mg Mental Status Assessment - Mental Status Orientation: oriented to: Self, disoriented to: Place, Time, Situation Mental Status: Impaired: Thought processing, Language/interactions, Attention, Learning/memory, Problem-solving, Self-regulation, Other Present: Hallucinations Adjustment/Coping Assessment - Adjustment/Coping Adjustment/Coping: Severe: Awareness, Insight - Observation In terms of emotional functioning, the patient demonstrated challenges. This patient demonstrated signs of agitation, impulsivity and disinhibition, but there was no remarkable evidence of a formal thought disorder or psychosis. There was no evidence of depression or anxiety. Thought content was free from suicidal, homicidal or paranoid ideation, and thought processes were bradyphrenic and illogical. The patients mood was apathetic, and her affect was labile. The patient appears to possess poor insight and awareness into her situation and within the limits of this brief evaluation, poor adequate judgment. Behavior - Behavior Treatment Engagement: No effort - Observation Behaviorally, the patient demonstrated some signs of agitation, impulsivity or disinhibition. There was no remarkable evidence of a formal thought disorder or psychosis. - Goals LTG Status: Deferred STG Status: Deferred - Team Members Team Members: Neuropsychologist Diagnosis/Discharge Plan - Diagnosis (1) Concussion syndrome Status: Acute Impression: 77 year old woman with concussion and now delirium. Disinhibition Score: 21.00 Aggression Score: 17.50 Lability Score: 28.00 Agitated Behavior Total Score: 21 Maximizing Acute Care Outcome: It is recommended that the patient be monitored for emergent behavioral impulsivity as the medical condition evolves. This patients neuropathological challenges may limit rehabilitation potential going forward, and these challenges will require specialized therapeutic skills to maximize outcome. Additionally, the patients family is experiencing ongoing issues of adjustment given the traumatic nature of the injury, and they may benefit from ongoing psychological assistance. At this point in the recovery process, the patient does not have cognitive capacity as the patient is unable to understand a situation and its likely consequences, nor is the patient able to manipulate information rationally. Cognitive capacity will be assessed throughout the recovery process. - Discharge Planning Anticipated Problems: Ongoing areas of concern will include behavioral impulsivity, lack of insight and judgment, which is expected to improve with time and treatment. Treatment Plan: This clinician will continue to follow with you throughout the course of this patients acute care treatment, and I will be available to meet with the patient s family/support system to facilitate their understanding and the ongoing care of their family member. The goals of neuropsychological intervention shall be both educational and supportive to the family/support system as is deemed clinically appropriate. Thank you for the opportunity to assist in this patients care. Yo Chan, Ph.D., ABPP Board Certified in Clinical Neuropsychology [place] [employer] Professional Psychology [place] Licensed Psychologist #[id number]
--- NOTE | 2018-03-16 12:26 | P.PN ---
Subjective Interval history: Trauma PTD: 14. HD: 4 Patient lying in bed. No distress noted. Visitor at bedside. Patient asleep at present, but has been requiring restraints as she has been very restless. Physical Exam Vital signs: Vital Signs 03/15/18 12:28 03/15/18 16:00 03/15/18 20:00 Temperature 98.2 F 98.9 F Pulse Rate 110 H 124 H Respiratory Rate 16 18 Blood Pressure 157/70 H 142/62 H Pulse Oximetry 97 95 97 03/16/18 00:00 03/16/18 04:00 03/16/18 08:00 Temperature 98.6 F 99.1 F 97.9 F Pulse Rate 111 H 112 H 83 Respiratory Rate 18 18 14 Blood Pressure 162/74 H 162/74 H 133/65 Pulse Oximetry 96 96 97 03/16/18 12:00 Temperature 97.5 F L Pulse Rate 91 H Respiratory Rate 16 Blood Pressure 126/66 Pulse Oximetry 97 Intake & Output 03/15/18 03/16/18 03/16/18 18:59 06:59 18:59 Intake Total 100 / 100 480 / 480 Output Total 400 / 400 Balance -300 / -300 460 / 460 Weight 50.7 kg Intake: Oral 100 / 100 480 / 480 Output: Urine 100 / 100 Urine Amount (Catheter) 300 / 300 Indwelling Urethral Catheter 300 / 300 Wound Drainage # 1 Back Other: # Voids 1 Date of Last Bowel Movement 03/15/18 03/15/18 Narrative: GENERAL: This is a 77-year-old female lying in bed. No distress noted. SKIN: Warm and dry. HEAD: Atraumatic. Normocephalic. EYES: PERRLA ENT: No nasal bleeding or discharge. Mucous membranes pink and moist. NECK: Trachea midline. No JVD. CARDIOVASCULAR: Regular rate and rhythm. RESPIRATORY: No accessory muscle use. Lungs are clear to auscultation. Breath sounds equal bilaterally. No distress or dyspnea. GASTROINTESTINAL: BS + x 4 quads. Abdomen soft, non-tender, nondistended. MUSCULOSKELETAL: Extremities without cyanosis, or edema. + peripheral pulses x 4 extremities. Warm with good capillary refill and sensation. NEUROLOGICAL: Awakens, but remains restless and agitated at times. - Urinary Catheter Management Indwelling Urethral Catheter Cath placed during this visit: yes Reason for continuing: Hourly intake/output Insertion date: 03/13/18 Insertion time: 13:30 Results - Labs CBC & Chem 7: 03/16/18 06:42 03/16/18 06:42 Laboratory Results - last 24 hr 03/13/18 03/16/18 03/16/18 18:53 06:42 06:42 WBC 4.9 RBC 3.04 L Hgb 9.2 L Hct 26.5 L MCV 87.2 MCH 30.2 MCHC 34.7 RDW 13.1 Plt Count 207 MPV 7.3 Neut % (Auto) 79.1 H Lymph % (Auto) 5.7 L [place] % (Auto) 14.3 H Eos % (Auto) 0.5 Baso % (Auto) 0.4 Neut # (Auto) 3.9 Lymph # (Auto) 0.3 L [place] # (Auto) 0.7 Eos # (Auto) 0.0 Baso # (Auto) 0.0 WBC Differential . Differential Comment Auto diff final Sodium 142 Potassium 3.5 Chloride 101 Carbon Dioxide 32.8 H Anion Gap 8 BUN 12 Creatinine 0.40 L Estimated GFR Greater than 89 Random Glucose 121 H Calcium 7.9 L Total Bilirubin 0.7 AST 93 H ALT 11 Alkaline Phosphatase 113 Total Protein 5.3 L Albumin 2.6 L Crossmatch Prewarmed See Detail - Imaging Impressions Chest X-Ray 03/16/18 06:00 CONCLUSION: 1. Interval removal of right-sided chest tube without pneumothorax. 2. Otherwise, no significant significant interval change. Assessment and Plan - Plan [place]: This is a 77-year old female who sustained a fall. She fell from a standing position approximately 10 days prior to admission. Then she flew on a plane from [place] to [place]. She came to our emergency room when she had back/flank pain. INJURIES: Unstable L1 burst fx w/ retropulsion L3-4 disk protrusion L4-5 canal stenosis RIGHT PTX RIGHT rib fxs (4-6) RIGHT pulmonary contusion RIGHT adnex cystic mass bilateral granulomatous calcification in lung bases PMHx: Breast cancer. Osteoporosis. Parkinson dx. Frequent falls. Procedures: 03/13: RIGHT sided CT in IR 03/13: L1 laminectomy. ORIF L 1 fx. T11-L3 fusion. 03/15: R CT removed. Consults: Neurosurgery. Neuropsych. Rehab medicine. [place] nurse liaison. Case management. Diet: Regular diet. Tolerating po diet. Encourage good po intake with each meal. Pulmonary: Encourage good pulmonary toileting. IS at bedside and pt encouraged to use. Rationale for use explained to patient, and verbalized understanding. Right apical chest tube removed yesterday at bedside without incident. Follow- up chest X ray this morning is stable with no PTX. PAIN Management: Decrease Percocet to 2.5 mg q 4h. Toradol 30 mg q8h. Lidoderm patch. Sleep: Trazodone 50 mg HS. Activity: OOB. PT and OT ordered. TLSO brace when out of bed. GI prophylaxis: Pepcid 20 mg BID PO Bowel regimen: Steffi-Colace. MOM PRN. Lactulose PRN. Senna PRN. Bisacodyl PRN. LBM: 03/15 DVT prophylaxis: Mechanical VTE with SCDs. Chemical management with Lovenox 30 mg QD SQ. DC Planning: Case management consulted for assistance with final discharge disposition. PT is recommending rehab placement. Consult placed to [facility] nurse liaison to assess patient for possible admission to rehab. Emotional support provided to patient and family at bedside and plan of care discussed. Discussed with RN at bedside. Discussed pt condition and plan of care with collaborating trauma surgeon. Patient is hemodynamically stable and being managed on the med/surg floor. The trauma team will round each day, and evaluate plan of care on a daily basis. Unstable L1 burst fx w/ retropulsion L3-4 disk protrusion L4-5 canal stenosis Neurosurgery consulted and assisting in management and care 03/13: L1 laminectomy. ORIF L 1 fx. T11-L3 fusion. Supportive care Pain management Encourage out of bed PT and OT ordered TLSO brace when out of bed Bowel regimen Lovenox for DVT prophylaxis RIGHT PTX RIGHT rib fxs (4-6) RIGHT pulmonary contusion O2 nasal cannula as needed Supportive care Aggressive pulmonary toileting 03/13: RIGHT sided CT in IR 03/15: R CT removed. Follow-up chest x-ray post chest tube removal remains stable with no PTX Chest x-ray as needed Pain management Encourage out of bed PT and OT ordered Bowel regimen Lovenox for DVT prophylaxis Parkinson's Restlessness Assist patient to return to proper sleep/wake cycle Provide bright room and open curtains during the day, promote sleep at night Limit vitals and sleep interruption at night Possible ICU psychosis Provide constant reorientation Keep Patient safe -restraints Reduce Sinemet dosing Possible patient is opioid oleksandr -reduce Percocet dosing and supplement with nonnarcotic adjuncts - Attending Attestation doing well,CXR stable,continue pain control,DVT prophylaxis,diet,PT ,DC planning
--- NOTE | 2018-03-16 17:10 | P.PNNS ---
Subjective Interval history: confused overnight, reportedly pulled her TOMASA drain last night, required soft restraints. not complaining of back pain, intermittently trying to get out of bed. 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 she gets Percocet for pain. Physical Exam Vital signs: Vital Signs 03/15/18 20:00 03/16/18 00:00 03/16/18 04:00 Temperature 98.9 F 98.6 F 99.1 F Pulse Rate 124 H 111 H 112 H Respiratory Rate 18 18 18 Blood Pressure 142/62 H 162/74 H 162/74 H Pulse Oximetry 97 96 96 03/16/18 08:00 03/16/18 12:00 03/16/18 16:00 Temperature 97.9 F 97.5 F L 98.2 F Pulse Rate 83 91 H 109 H Respiratory Rate 14 16 14 Blood Pressure 133/65 126/66 121/59 L Pulse Oximetry 97 97 98 Intake & Output 03/15/18 03/16/18 03/16/18 18:59 06:59 18:59 Intake Total 100 / 100 480 / 480 Output Total 400 / 400 Balance -300 / -300 460 / 460 Weight 50.7 kg Intake: Oral 100 / 100 480 / 480 Output: Urine 100 / 100 Urine Amount (Catheter) 300 / 300 Indwelling Urethral Catheter 300 / 300 Wound Drainage # 1 Back Other: # Voids 1 Date of Last Bowel Movement 03/15/18 03/15/18 Narrative: confused, oriented to first name only. follows simple commands moving lower extremities 5/5, moves upper extremities symmetric No ankle clonus plantars flexors bilaterally pupils equal facial motor symmetric wound dressed with primapore dressing dated today, clean, dry intact - Urinary Catheter Management Indwelling Urethral Catheter Cath placed during this visit: yes Reason for continuing: Hourly intake/output Insertion date: 03/13/18 Insertion time: 13:30 Assessment and Plan - Plan 77 y/o female s/p T11-L3 instrumentation, L1 laminectomy/reduction of fracture by Dr. Sanchze on 03/13/18. post-operatively neurologically stable encephalopathy, confusion, prob multi-factorial, medications? Plan: cont supportive care TLSO brace when out of bed PT, encourage mobilization recommend poss decreasing pain medications to see if helps with confusion dw nursing - to discuss with trauma team
[2018-03-16] MEDS: traZODone 50 MG Tablet PO SCH (20:41)
[2018-03-17] MEDS: Ketorolac Inj 30 MG/ML (IVP) Vial IV.PUSH SCH ×4 (04:48→14:27)
[2018-03-17 06:34] LABS: Baso % (Auto) 0.2 % (0.0-2.0); Eos % (Auto) 0.2 % (0.0-4.0); Hematocrit 29.4 % (35.0-46.0); Hemoglobin 10.4 gm/dL (11.6-15.3); Lymph # (Auto) 0.3 th/mm3 (1.0-4.8); Lymph % (Auto) 3.7 % (9.0-44.0); Mean Corpuscular HGB Conc 35.2 % (32.0-36.0); Mean Corpuscular Hemoglobin 30.6 pg (27.0-34.0); Mean Corpuscular Volume 86.8 fL (80.0-100.0); Mean Platelet Volume 7.2 fL (7.0-11.0); Mono # (Auto) 0.9 th/mm3 (0.0-0.9); Mono % (Auto) 10.6 % (0.0-8.0); Neut # (Auto) 6.9 th/mm3 (1.8-7.7); Neut % (Auto) 85.3 % (16.0-70.0); Platelet Count 259 th/mm3 (150-450); Red Blood Count 3.39 mil/mm3 (4.00-5.30); Red Cell Distribution Width 13.4 % (11.6-17.2); White Blood Count 8.1 th/mm3 (4.0-11.0)
--- NOTE | 2018-03-17 06:40 | XR ---
EXAM DATE: 03/17/2018 6:00 AM EDT AGE/SEX: 77 years / Female INDICATIONS: Short of breath CLINICAL DATA: This is the patient's subsequent encounter. Patient reports that signs and symptoms h ave been present for 4 - 6 days and indicates a pain score of Nonresponsive. MEDICAL/SURGICAL HISTORY: Parkinson's disease. Osteoporosis. Carcinoma, breast. rib fracture s . spinal fusion [place] [facility] [place]. . FINDINGS: No new focal pleural or parenchymal opacities. Redemonstration of calcified granulomas in the lower l ximena zones bilaterally. Cardiomediastinal contours are within normal limits remainder of the exam is u nchanged. CONCLUSION: 1. No significant interval change. 2. No acute abnormality. Electronically signed by: Kody Mcbride MD 03/17/2018 6:38 AM EDT
[2018-03-17] MEDS: Enoxaparin Inj 30 MG/0.3 ML Syringe SQ SCH (08:00)
[2018-03-17] MEDS: Famotidine 20 MG Tablet PO SCH (08:00)
[2018-03-17] MEDS: Lidocaine 5% Patch T-DERMAL SCH (08:00)
[2018-03-17] MEDS: Calcium/Vitamin D 250/125 MG Tablet PO SCH (08:00)
[2018-03-17] MEDS: Senna/Docusate Sodium 8.6/50 MG Tablet PO SCH (08:01)
[2018-03-17 08:19] LABS: Albumin 2.9 g/dL (3.4-5.0); Anion Gap 11 meq/L (5-15); Aspartate Aminotransferase 96 U/L (15-37); Blood Urea Nitrogen 7 mg/dL (7-18); Calcium 8.5 mg/dL (8.5-10.1); Carbon Dioxide 29.5 meq/L (21.0-32.0); Chloride 97 meq/L (98-107); Glomerular Filtration Rate Greater Than 89 mL/min (>89); Glucose,Random 125 mg/dL (74-106); Potassium 3.1 meq/L (3.5-5.1); Sodium 137 meq/L (136-145)
[2018-03-17 08:24] LABS: Alanine Aminotransferase 38 U/L (10-53); Alkaline Phosphatase 158 U/L (45-117); Total Protein 6.3 g/dL (6.4-8.2)
--- NOTE | 2018-03-17 08:43 | P.PNNPSY ---
- Behavior Mild: Impulsive/agitated - Cognitive Moderate: Cognitive, Attention/concentration, Confused/orientation, Insight/ awareness, Judgment/problem solving, Memory - Psychosocial Intact: Psychosocial, Family/other adjustment, Realistic expectation - Progress Notes/Response to Treatment Contents of Sessions: Adjustment, Level of consciousness Time with Patient: 15 minutes Premorbid Psychological Status: Premorbid Cognitive, Emotional and Behavioral Status: stable. 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 The patient has no prior psychiatric difficulties, as described above. Substance abuse history is unremarkable. Behavioral Reactions of Patient and Family/Support System: Stable, The patient s family is experiencing ongoing issues of adjustment given the nature of the injury, and this aspect of recovery will require ongoing monitoring. Emotional/Behavioral Status of Patient and Family/Support System: Stable. Pertinent issues, if appropriate to this patients clinical care, are described in detail above. Maximizing Acute Care Outcome: It is recommended that the patient be monitored for emergent behavioral impulsivity as the medical condition evolves. This patients neuropathological challenges may limit rehabilitation potential going forward, and these challenges will require specialized therapeutic skills to maximize outcome. Additionally, the patients family is experiencing ongoing issues of adjustment given the traumatic nature of the injury, and they may benefit from ongoing psychological assistance. At this point in the recovery process, the patient does not have cognitive capacity as the patient is unable to understand a situation and its likely consequences, nor is the patient able to manipulate information rationally. Cognitive capacity will be assessed throughout the recovery process. Anticipated Problems: Ongoing areas of concern will include behavioral impulsivity, lack of insight and judgment, which is expected to improve with time and treatment. Treatment Plan: This clinician will continue to follow with you throughout the course of this patients acute care treatment, and I will be available to meet with the patient s family/support system to facilitate their understanding and the ongoing care of their family member. The goals of neuropsychological intervention shall be both educational and supportive to the family/support system as is deemed clinically appropriate. Disinhibition Score: 22.75 Aggression Score: 14.00 Lability Score: 28.00 Agitated Behavior Total Score: 22 Impression: 77 year old woman with concussion and now delirium. Progress Note Narrative: PTD 5. Clinical presentation yesterday was of an elderly woman in restraints, confused and questionable hallucinations. Trauma team consensus was to titrate Sinemet as well as pain meds. Her ABS today is 22 (22.8,14,28) essentially unchanged from yesterday of 21T. Efforts are made to encourage normal sleep/ wake cycles. She was up in a chair, confused however. I will follow. - Diagnosis (1) Concussion syndrome Status: Acute
[2018-03-17 16:25] VITALS: BP 166/71; PULSE 93; RESP 18; TEMP 99.2; O2SAT 96
--- NOTE | 2018-03-17 20:14 | P.PNNS ---
Subjective Interval history: son in room, reports a bit more oriented today Physical Exam Vital signs: Vital Signs 03/17/18 00:00 03/17/18 00:30 03/17/18 04:00 Temperature 97.6 F 98.0 F Pulse Rate 95 H 99 H Respiratory Rate 16 17 17 Blood Pressure 159/77 H 165/76 H Pulse Oximetry 96 97 03/17/18 08:00 03/17/18 12:00 03/17/18 16:00 Temperature 98.4 F 97.6 F 99.2 F Pulse Rate 106 H 101 H 93 H Respiratory Rate 18 19 18 Blood Pressure 166/79 H 168/67 H 166/71 H Pulse Oximetry 97 95 96 Intake & Output 03/17/18 03/17/18 03/18/18 06:59 18:59 06:59 Intake Total 240 / 240 Balance 240 / 240 Intake: Oral 240 / 240 Other: # Voids 3 # Urine Diapers 2 Date of Last Bowel Movement 03/15/18 04/14/18 Narrative: confused, oriented to name, and year. follows simple commands moving lower extremities 5/5, moves upper extremities symmetric No ankle clonus plantars flexors bilaterally pupils equal facial motor symmetric wound dressed with primapore dressing dated today, clean, dry intact - Urinary Catheter Management Indwelling Urethral Catheter Cath placed during this visit: yes Reason for continuing: Hourly intake/output Insertion date: 03/13/18 Insertion time: 13:30 Assessment and Plan - Plan 77 y/o female s/p T11-L3 instrumentation, L1 laminectomy/reduction of fracture by Dr. Sanchez on 03/13/18. post-operatively neurologically stable encephalopathy, confusion, prob multi-factorial, medications? Plan: cont supportive care TLSO brace when out of bed PT, encourage mobilization cont care per trauma team rehab efforts
--- NOTE | 2018-03-18 15:12 | P.DS ---
Date of admission: 03/12/18 15:55 Primary care physician: Rj Nick MD Attending physician on discharge: Missy Leonard Anticipated date of discharge: 03/17/18 Brief History from admission: 77 y.o female-fell 10 days ago in [place]-came back to [place]-has been c/o back pain- right thoracic pain.Today she was seen in the ER,the work up shows right 4-5-6 rib fx,moderate PTX and a severe L1 fx with retropulsion.Patient is neuro intact ,GCS 15. DS: Diagnosis - Discharge Diagnosis (1) Fracture of lumbar spine Status: Acute (2) Pneumothorax Status: Resolved (3) Concussion syndrome Status: Acute (4) Altered mental status Status: Acute (5) Impaired mobility and activities of daily living Status: Acute (6) Parkinson disease Status: Chronic DS: Summary Hospital Course: ELY SHOSHONE: This is a 77-year old female who sustained a fall. She fell from a standing position approximately 10 days prior to admission. Then she flew on a plane from [place] to [place]. She came to our emergency room when she had back/flank pain. INJURIES: Unstable L1 burst fx w/ retropulsion L3-4 disk protrusion L4-5 canal stenosis RIGHT PTX RIGHT rib fxs (4-6) RIGHT pulmonary contusion RIGHT adnex cystic mass bilateral granulomatous calcification in lung bases PMHx: Breast cancer. Osteoporosis. Parkinson dx. Frequent falls. Procedures: 03/13: RIGHT sided CT in IR 03/13: L1 laminectomy. ORIF L 1 fx. T11-L3 fusion. 03/15: R CT removed. Consults: Neurosurgery. Neuropsych. Rehab medicine. Aamir nurse liaison. Case management. The patient is now tolerating a po diet. Eating and drinking well. Pain is being managed well with PO pain medications, all hospital medications will continue at rehab. (NO driving while taking narcotic pain medication enforced to patient.) Pt is having regular bowel movements, and have recommended to patient to continue with stool softeners while taking narcotic pain medications to prevent constipation. Pt has been participating in PT and OT while admitted at [facility] and has been ambulating with their assistance and independently. Pt and OT will continue at rehab. All follow up appointments have been provided and discussed with the patient. It is recommended that the patient keeps all his follow up appointments for continued recovery. Patient's condition and plan of care discussed with collaborating trauma surgeon. He is agreeable to plan for discharge today. Therefore, the patient is stable to be safely discharged home from a trauma surgery standpoint. Thank you for allowing us to participate in his care. We wish Sherly the best in his recovery. Unstable L1 burst fx w/ retropulsion L3-4 disk protrusion L4-5 canal stenosis Neurosurgery consulted and assisting in management and care 03/13: L1 laminectomy. ORIF L 1 fx. T11-L3 fusion. Supportive care Pain management Encourage out of bed PT and OT ordered TLSO brace when out of bed Bowel regimen Lovenox for DVT prophylaxis RIGHT PTX RIGHT rib fxs (4-6) RIGHT pulmonary contusion O2 nasal cannula as needed Supportive care Aggressive pulmonary toileting 03/13: RIGHT sided CT in IR 03/15: R CT removed. Follow-up chest x-ray post chest tube removal remains stable with no PTX Chest x-ray as needed Pain management Encourage out of bed PT and OT ordered Bowel regimen Lovenox for DVT prophylaxis Parkinson's Restlessness Assist patient to return to proper sleep/wake cycle Provide bright room and open curtains during the day, promote sleep at night Limit vitals and sleep interruption at night Possible ICU psychosis Provide constant reorientation Keep Patient safe -restraints Reduce Sinemet dosing Possible patient is opioid oleksandr -reduce Percocet dosing and supplement with nonnarcotic adjuncts - Time Spent with Patient Total time spent providing and/or coordinating discharge services: Greater than 30 minutes Exam Vital signs: Vital Signs 03/17/18 16:00 Temperature 99.2 F Pulse Rate 93 H Respiratory Rate 18 Blood Pressure 166/71 H Pulse Oximetry 96 Intake & Output 03/17/18 03/18/18 03/18/18 18:59 06:59 18:59 Intake Total 240 / 240 Balance 240 / 240 Intake: Oral 240 / 240 Other: # Voids 3 Date of Last Bowel Movement 04/14/18 Narrative: GENERAL: This is a 77-year-old female lying in bed. No distress noted. SKIN: Warm and dry. HEAD: Atraumatic. Normocephalic. EYES: PERRLA ENT: No nasal bleeding or discharge. Mucous membranes pink and moist. NECK: Trachea midline. No JVD. CARDIOVASCULAR: Regular rate and rhythm. RESPIRATORY: No accessory muscle use. Lungs are clear to auscultation. Breath sounds equal bilaterally. No distress or dyspnea. GASTROINTESTINAL: BS + x 4 quads. Abdomen soft, non-tender, nondistended. MUSCULOSKELETAL: Extremities without cyanosis, or edema. + peripheral pulses x 4 extremities. Warm with good capillary refill and sensation. NEUROLOGICAL: Awakens, but remains restless and agitated at times Results Procedures completed during hospitalization: . Labs on day of discharge: Labs from last 24 hours 03/13/18 15:28 Rout Panel Path Interp - Impressions ITS Impressions Lumbar Spine CT 03/12/18 00:00 CONCLUSION: At L1 there is a severe compression fracture with retropulsion and moderate to severe central canal lateral recess stenosis. At L4-5 there is a severe central canal stenosis from grade 1 anterolisthesis, disc protrusion and facet arthropathy. At L3-4 there is a moderate central canal lateral recess stenosis from disc protrusion, minimal anterolisthesis and facet arthropathy. Lumbar Spine MRI 03/12/18 00:00 CONCLUSION: 1. At L1 there is a severe compression fracture with retropulsion resulting in a focal moderate to severe canal and lateral recess stenosis. 2. At L3-4 there is a moderate central canal and lateral recess stenosis from disc protrusion and facet arthropathy. 3. At L4-5 there is a severe focal severe canal stenosis from grade 1 anterolisthesis listhesis, disc protrusion and facet arthropathy. Abdomen/Pelvis CT 03/12/18 12:31 CONCLUSION: 1. Small to moderate-sized pneumothorax on the right. 2. 4.1 x 3.5 cm well-circumscribed cystic mass in the right adnexa. 3. Severe compression fracture of L1. Compression fracture at L1 is new since previous of 11/13/2016. Hip X-Ray 03/12/18 12:31 CONCLUSION: No acute bony abnormality is identified. Soft tissue abnormality in the subcutaneous tissues of the right groin. Please see above. Ribs X-Ray 03/12/18 12:33 CONCLUSION: 1. The examination demonstrates a moderate-sized pneumothorax on the right with fractures involving the right fourth, fifth and sixth ribs. 2. Incidental note made of small areas of granulomatous calcification in the lung bases bilaterally. Chest Tube Insertion 03/13/18 00:00 CONCLUSION: 1. Uncomplicated chest tube placement as above. Thoracolumbar Spine 03/13/18 00:00 CONCLUSION: Spine fixation as above. Chest X-Ray 03/17/18 06:00 CONCLUSION: 1. No significant interval change. 2. No acute abnormality. Discharge Plan - Discharge Disposition Patient Disposition: 62 Rehab Inpatient - Discharge Condition Condition: Stable - Discharge Order Discharge Orders: Discharge Order (Routine); Ordered 03/17/18 Ordered By: Cheri Nicholson - Discharge Details Anticipated Discharge Date: 03/17/18 Discharge Comment: Clear to DC to [facility]. - Physicians Team Primary Care Provider: Rj Nick Attending Provider: Missy Leonard Other Providers: Missy Leonard MD ; Rajesh Sanchez MD ; Rj Nick MD ; Aiden Dickens MD ; Tye Davis MD ; [employer] ; Ealr Carlos MD ; Cheri Nicholson ARNP ; Bull Grey MD ; Martha Ware ARNP ; Alvino Pierson MD ; Yo Chan, PhD ; Baljit Brooks MD
== END 2018-03-17 17:48 ==
LOC: NEPE 10:50 → NEDA 15:55 → N06 18:32 → N03 20:45 → N06 03-15 18:19
PROVIDERS: ADMIT Surgery Trauma Surgery; ATTEND Surgery Trauma Surgery